=== PATIENT | female | born 1945 | race Caucasian/White ===

== ENCOUNTER 2024-05-18 11:14 | Observation (INO) ==
[2024-05-18 12:09] LABS: Appearance Urine Cloudy (Clear); Bacteria Urine Automated 1+ (None Seen); Bilirubin Urine Negative (Negative); Blood Urine Negative (Negative); Cast Urine Automated 0-2 /lpf (0-2); Color Urine Yellow; Glucose Urine UA Negative (Negative); Ketones Urine Trace (Negative); Leukocyte Esterase Urine 1+ (Negative); Nitrite Urine Negative (Negative); Protein Urine 1+ (Negative); Specific Gravity Urine 1.015 (1.000-1.030); Urobilinogen Urine Positive (Negative); pH Urine 8.5 (4.5-7.5)
[2024-05-18] MEDS: KETOROLAC TROMETHAMINE 15 MG/ML VIAL IV ONE (12:13)
[2024-05-18] MEDS: ONDANSETRON INJ 2 MG/ML 2 ML VIAL IV STA (12:13)
--- NOTE | 2024-05-18 12:15 | Emergency Department Note ---
Impression & Plan Renal infarct, Nausea ED Provider Note Provider: Jaren Parham MD DATE OF SERVICE: 05/18/2024 CHIEF COMPLAINT: Right flank pain, nausea and diarrhea HISTORY OF PRESENT ILLNESS: Patient is a 79-year-old female history of hypertension presenting here today reporting developing overnight pain in the right flank to right lower quadrant abdomen this morning. Reports nausea but no vomiting. Has had some diarrhea. Did take some Pepto this morning and had a little bit of darker stool. No fevers reported or chest pain or shortness of breath. Did not eat anything today as she was nauseous. No history of kidney stone. No trauma or falls. No pain in the leg. Maybe a little bit worse if she presses on her right flank but no abdominal pain. History of cholecystectomy in the past years ago. No sick contacts or recent travel. PAST MEDICAL HISTORY: As noted above MEDICATIONS: Reviewed home medications, uses 81 mg aspirin regularly SOCIAL HISTORY: Non-smoker PHYSICAL EXAM: GENERAL: alert and oriented in no acute distress on stretcher Head: normocephalic and atraumatic EYES: No injection, discharge or icterus. EOMI. NECK: Trachea midline. ENT: Mucous membranes pink and moist. LUNGS: Airway patent. No retractions. Breath sounds clear HEART: Regular rate and rhythm. No chest wall tenderness ABDOMEN: Soft and non-tender, without guarding or rebound. No appreciable masses or rash noted. SKIN: Acyanotic, warm, dry, without rashes EXTREMITIES: Without swelling, tenderness or deformity NEUROLOGICAL: No focal deficits. No aphasia. No facial droop or slurred speech. Ambulatory. EK bpm normal sinus rhythm. No PVC or PAC. Bit of baseline artifact but no acute ST segment elevation or depression with QTc of 443. CONTINUOUS CARDIAC MONITORING: was ordered and showed a heart rate of 60s to 70s bpm in normal sinus rhythm Patient's laboratory studies and imaging reviewed. Differential includes Renal colic, UTI, appendicitis, diverticulitis, mesenteric ischemia, aortic pathology, infections, inflammatory bowel disease, PUD, biliary pathology, as well as other pathologies. IMPRESSION/MEDICAL DECISION MAKING: Patient well-appearing in no distress. No fever or tachycardia. Patient pain in the right flank to right lower quadrant. Prior cholecystectomy. Not significantly tender in the abdomen. No pain in the leg or swelling. No trauma. No rash does not seem like zoster. Having some nausea as well as diarrhea. States diarrhea is little bit dark but no blood. Did take Pepto this morning. Doubt this is GI bleed. No sick contacts or suspect food intake reported. Blood work obtained. Sent for CT scan to exclude intra- abdominal/intestinal issue or kidney stone. Does not seem sciatic in nature. No swelling of the legs and I doubt fluid overload at this time or DVT. UA sent to exclude infection. EKG and troponin completed but lower suspicion this is cardiac in further discussion with the patient given the location of the pain in the right flank region. Doubt this represents PE or dissection. Not hypoxic or short of breath. Urinalysis here a few red blood cells, bacteria, and white blood cells notable. No significant acute renal dysfunction or evidence of hepatitis or pancreatitis of the redraw was needed for hemolyzed labs. Electrolytes reassuring. CBC clotted twice and had to be sent a third time. Third CBC did result with normal WBC/Hgb/hematocrit/platelet count. CT report of the abdomen pelvis per radiology state findings of mid to inferior right kidney suggestive of acute renal infarcts. Mother of a blood clot at age 36. Hypercoagulable workup ordered for further evaluation. Did reach out discussed with Dr. Kang of the anticoagulation clinic the case. She again agreed that this was a bit of an odd scenario. Given the patient's age with this odd finding although there is no history of A-fib further monitoring here with telemetry and starting of a heparin drip would likely be the best course of action. Discussed with the patient and she is agreeable to stay briefly. Did reach out discussed with the hospitalist team. Heparin drip ordered. DIAGNOSIS: Right renal infarcts, nausea DISPOSITION: Being evaluated by the hospitalist Patient was agreeable with this plan. 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 Family History (Updated 01/26/24 @ 09:53 by Mayuri Delgado) Denies family history of Ovarian cancer Prostate cancer Myocardial infarction Breast cancer Colorectal cancer Social History (Updated 01/26/24 @ 09:53 by Crystal D Danny) Smoking Status: Never smoker Do You Dip or Chew Tobacco: No; Hx Alcohol Use: No Hx Substance Use: No Preferred Language: Korean Current Living Situation: Family current occupational status: retired Feels Safe at Home: Yes Childhood Exposure to Second-Hand Smoke: No Dental Care, Regularly: No Physical Activity Frequency: 1-2 Times per Week Seatbelt Use: always Sunscreen Use: Yes Assistive Devices: Denture - Upper, Denture - Lower and Glasses Allergies Allergies Allergy/AdvReac Type Severity Reaction Status Date / Time No Known Allergies Allergy Verified 01/26/24 09:49 Home Meds Home Medications Medication Instructions Recorded Confirmed multivitamin (Daily Multi-Vitamin 1 tab PO DAILY 01/26/24 01/26/24 tablet) Previous Rx's Medication Instructions Recorded amlodipine 10 mg tablet 10 mg PO DAILY #90 tabs 01/26/24 carvedilol 6.25 mg tablet 6.25 mg PO BID 90 days #180 tabs 01/26/24 ipratropium bromide 21 mcg (0.03 2 spray intranasal TID #30 mL 01/26/24 %) nasal spray lisinopril 10 mg tablet 10 mg PO DAILY #90 tabs 01/26/24 loratadine 10 mg tablet (Claritin) 10 mg PO DAILY #90 tabs 01/26/24 Results & Data (ED) Vital Signs Vital Signs - 24 hr 05/18/24 11:21 05/18/24 11:54 05/18/24 12:43 Temperature 36.4 C L Temperature Source Oral Pulse Rate 100 H 66 Pulse Rate [Apical] 78 Respiratory Rate 18 12 Respiratory Effort / Characteristics Non-Labored Spontaneous Respiratory Depth Normal Respiratory Pattern Regular Blood Pressure 180/109 H Blood Pressure [Right Arm] 158/73 H Blood Pressure Mean 132 Blood Pressure Mean [Right Arm] 101 Pulse Oximetry 97 96 Oxygen Delivery Method Room Air Room Air Sepsis Recent Fever Within 48 Hours No Sepsis New/Unexplained Change in Mental Status No Sepsis Action Taken by Nursing No Action Required 05/18/24 14:00 Temperature Temperature Source Pulse Rate Pulse Rate [Apical] 63 Respiratory Rate 18 Respiratory Effort / Characteristics Non-Labored Spontaneous Respiratory Depth Normal Respiratory Pattern Regular Blood Pressure Blood Pressure [Right Arm] 129/77 Blood Pressure Mean Blood Pressure Mean [Right Arm] 94 Pulse Oximetry 97 Oxygen Delivery Method Room Air Sepsis Recent Fever Within 48 Hours Sepsis New/Unexplained Change in Mental Status Sepsis Action Taken by Nursing Laboratory Data 05/18/24 14:10 05/18/24 12:40 Lab Results 05/18/24 05/18/24 05/18/24 Range/Units 11:33 11:46 12:40 WBC Cancelled Cancelled RBC Cancelled Cancelled Hgb Cancelled Cancelled Hct Cancelled Cancelled MCV Cancelled Cancelled MCH Cancelled Cancelled MCHC Cancelled Cancelled RDW Std Deviation Cancelled Cancelled RDW Coeff of Kishore Cancelled Cancelled Plt Count Cancelled Cancelled MPV Cancelled Cancelled Immature Gran % (Auto) Cancelled Cancelled Neut % (Auto) Cancelled Cancelled Lymph % (Auto) Cancelled Cancelled [place] % (Auto) Cancelled Cancelled Eos % (Auto) Cancelled Cancelled Baso % (Auto) Cancelled Cancelled Neut # (Auto) Cancelled Cancelled Lymph # (Auto) Cancelled Cancelled [place] # (Auto) Cancelled Cancelled Eos # (Auto) Cancelled Cancelled Baso # (Auto) Cancelled Cancelled Immature Gran # (Auto) Cancelled Cancelled Absolute Nucleated RBC Cancelled Cancelled Nucleated RBC % (auto) Cancelled Cancelled Neutrophils % (Manual) Cancelled Cancelled Band Neutrophils % Cancelled Cancelled Lymphocytes % (Manual) Cancelled Cancelled Prolymphocyte % Cancelled Cancelled Reactive Lymphs % (Man) Cancelled Cancelled Monocytes % (Manual) Cancelled Cancelled Eosinophils % (Manual) Cancelled Cancelled Basophils % (Manual) Cancelled Cancelled Metamyelocytes % (Man) Cancelled Cancelled Myelocytes % (Man) Cancelled Cancelled Promyelocytes % (Man) Cancelled Cancelled Blast Cells % (Manual) Cancelled Cancelled Plasma Cell % (Manual) Cancelled Cancelled Other Cells % Cancelled Cancelled Nucleated RBC % Cancelled Cancelled Neutrophils # (Manual) Cancelled Cancelled Band Neutrophils # Cancelled Cancelled Total Absolute Neuts Cancelled Cancelled Lymphocytes # (Manual) Cancelled Cancelled Prolymphocyte # Cancelled Cancelled Reactive Lymphs # Cancelled Cancelled Total Abs Lymphocytes Cancelled Cancelled Monocytes # (Manual) Cancelled Cancelled Eosinophils # (Manual) Cancelled Cancelled Basophils # (Manual) Cancelled Cancelled Metamyelocytes # (Man) Cancelled Cancelled Myelocytes # (Manual) Cancelled Cancelled Promyelocytes # (Man) Cancelled Cancelled Blast Cells # (Man) Cancelled Cancelled Plasma Cell # (Manual) Cancelled Cancelled Other Cells # Cancelled Cancelled Nucleated RBCs # (Man) Cancelled Cancelled Hypersegmented Neuts Cancelled Cancelled Hyposegmented Neuts Cancelled Cancelled Hypogranular Neuts Cancelled Cancelled Large Granular Lymphs Cancelled Cancelled # Lrg Granular Lymphs Cancelled Cancelled Hairy Cells Cancelled Cancelled Smudge Cells Cancelled Cancelled Toxic Granulation Cancelled Cancelled Toxic Vacuolation Cancelled Cancelled Dohle Bodies Cancelled Cancelled Akash Rods Cancelled Cancelled Platelet Estimate Cancelled Cancelled Hypogranular Platelets Cancelled Cancelled Giant Platelets Cancelled Cancelled Platelet Satelliting Cancelled Cancelled RBC Morphology Cancelled Cancelled Polychromasia Cancelled Cancelled Hypochromasia Cancelled Cancelled Poikilocytosis Cancelled Cancelled Basophilic Stippling Cancelled Cancelled Anisocytosis Cancelled Cancelled Microcytosis Cancelled Cancelled Macrocytosis Cancelled Cancelled Spherocytes Cancelled Cancelled Pappenheimer Bodies Cancelled Cancelled Sickle Cells Cancelled Cancelled Target Cells Cancelled Cancelled Tear Drop Cells Cancelled Cancelled Ovalocytes Cancelled Cancelled Stomatocytes Cancelled Cancelled [place] Bodies Cancelled Cancelled Echinocytes Cancelled Cancelled Acanthocytes (Spur) Cancelled Cancelled Rouleaux Cancelled Cancelled RBC Agglutinates Cancelled Cancelled Schistocytes Cancelled Cancelled Sezary Cell Cancelled Cancelled Sodium 136 (136-145) mmol/L Potassium TNP 3.8 Chloride 101 (98-107) mmol/L Carbon Dioxide 25 (21-32) mmol/L Anion Gap 10 (3-11) BUN 17 (6-23) mg/dl Creatinine 0.78 (0.6-1.2) mg/dl Est Cr Clr Drug Dosing 68.7 ml/min eGFR 77.69 BUN/Creatinine Ratio 21.8 H (10-20) Glucose 144 H (70-99(Fasting)) mg/dl Calcium 10.5 H (8.6-10.3) mg/dl Total Bilirubin 0.5 (0.2-1.0) mg/dl AST TNP 24 ALT 18 (7-52) U/L Alkaline Phosphatase 80 (34-104) U/L Troponin I High Sens 9.6 (0-14) pg/ml Total Protein 9.0 H (6.0-8.3) gm/dl Albumin 4.9 (3.4-5.0) gm/dl Globulin 4.1 H (2.5-4.0) gm/dl Albumin/Globulin Ratio 1.2 (0.9-2) Lipase 13 (11-82) U/L Urine Color Yellow Urine Appearance Cloudy A (Clear) Urine pH 8.5 H (4.5-7.5) Ur Specific [place] 1.015 (1.000-1.030) Urine Protein 1+ H (Negative) Urine Glucose (UA) Negative (Negative) Urine Ketones Trace H (Negative) Urine Blood Negative (Negative) Urine Nitrite Negative (Negative) Urine Bilirubin Negative (Negative) Urine Urobilinogen Positive H (Negative) Ur Leukocyte Esterase 1+ H (Negative) Urine WBC (Auto) 6-10 H (0-5) /hpf Urine RBC (Auto) 3-5 H (0-2) /hpf U Hyaline Cast (Auto) 0-2 (0-2) /lpf U Epithel Cells (Auto) 3-5 H (0-2) /hpf Urine Bacteria (Auto) 1+ H (None Seen) Blood Parasites ID Cancelled Cancelled 05/18/24 Range/Units 14:10 WBC 9.82 RBC 4.58 Hgb 14.4 Hct 42.9 MCV 93.7 MCH 31.4 MCHC 33.6 RDW Std Deviation 42.4 RDW Coeff of Kishore 12.3 Plt Count 251 MPV 10.3 Immature Gran % (Auto) 0.3 Neut % (Auto) 78.1 Lymph % (Auto) 16.2 [place] % (Auto) 4.8 Eos % (Auto) 0.2 Baso % (Auto) 0.4 Neut # (Auto) 7.67 H Lymph # (Auto) 1.59 [place] # (Auto) 0.47 Eos # (Auto) 0.02 Baso # (Auto) 0.04 Immature Gran # (Auto) 0.03 Absolute Nucleated RBC Nucleated RBC % (auto) Neutrophils % (Manual) Band Neutrophils % Lymphocytes % (Manual) Prolymphocyte % Reactive Lymphs % (Man) Monocytes % (Manual) Eosinophils % (Manual) Basophils % (Manual) Metamyelocytes % (Man) Myelocytes % (Man) Promyelocytes % (Man) Blast Cells % (Manual) Plasma Cell % (Manual) Other Cells % Nucleated RBC % Neutrophils # (Manual) Band Neutrophils # Total Absolute Neuts Lymphocytes # (Manual) Prolymphocyte # Reactive Lymphs # Total Abs Lymphocytes Monocytes # (Manual) Eosinophils # (Manual) Basophils # (Manual) Metamyelocytes # (Man) Myelocytes # (Manual) Promyelocytes # (Man) Blast Cells # (Man) Plasma Cell # (Manual) Other Cells # Nucleated RBCs # (Man) Hypersegmented Neuts Hyposegmented Neuts Hypogranular Neuts Large Granular Lymphs # Lrg Granular Lymphs Hairy Cells Smudge Cells Toxic Granulation Toxic Vacuolation Dohle Bodies Akash Rods Platelet Estimate Hypogranular Platelets Giant Platelets Platelet Satelliting RBC Morphology Polychromasia Hypochromasia Poikilocytosis Basophilic Stippling Anisocytosis Microcytosis Macrocytosis Spherocytes Pappenheimer Bodies Sickle Cells Target Cells Tear Drop Cells Ovalocytes Stomatocytes [place] Bodies Echinocytes Acanthocytes (Spur) Rouleaux RBC Agglutinates Schistocytes Sezary Cell Sodium (136-145) mmol/L Potassium Chloride (98-107) mmol/L Carbon Dioxide (21-32) mmol/L Anion Gap (3-11) BUN (6-23) mg/dl Creatinine (0.6-1.2) mg/dl Est Cr Clr Drug Dosing ml/min eGFR BUN/Creatinine Ratio (10-20) Glucose (70-99(Fasting)) mg/dl Calcium (8.6-10.3) mg/dl Total Bilirubin (0.2-1.0) mg/dl AST ALT (7-52) U/L Alkaline Phosphatase (34-104) U/L Troponin I High Sens (0-14) pg/ml Total Protein (6.0-8.3) gm/dl Albumin (3.4-5.0) gm/dl Globulin (2.5-4.0) gm/dl Albumin/Globulin Ratio (0.9-2) Lipase (11-82) U/L Urine Color Urine Appearance (Clear) Urine pH (4.5-7.5) Ur Specific [place] (1.000-1.030) Urine Protein (Negative) Urine Glucose (UA) (Negative) Urine Ketones (Negative) Urine Blood (Negative) Urine Nitrite (Negative) Urine Bilirubin (Negative) Urine Urobilinogen (Negative) Ur Leukocyte Esterase (Negative) Urine WBC (Auto) (0-5) /hpf Urine RBC (Auto) (0-2) /hpf U Hyaline Cast (Auto) (0-2) /lpf U Epithel Cells (Auto) (0-2) /hpf Urine Bacteria (Auto) (None Seen) Blood Parasites ID Administered Medications Discontinued Medications Ioversol (Optiray 320 100ml) 94 ml IV ONCE ONE Stop: 05/18/24 13:03 Last Admin: 05/18/24 13:03 Dose: 94 ml Documented By: RAFIQF Ketorolac Tromethamine (Ketorolac Tromethamine 15 Mg/Ml Vial) 10 mg IV NOW ONE Stop: 05/18/24 12:10 Last Admin: 05/18/24 12:13 Dose: 10 mg Documented By: FARIDA Ondansetron HCl (Ondansetron Inj 2 Mg/Ml 2 Ml Vial) 4 mg IV NOW STA Stop: 05/18/24 12:09 Last Admin: 05/18/24 12:13 Dose: 4 mg Documented By: FARIDA Imaging Data Radiologist's Impression: Abdomen/Pelvis CT 05/18/24 12:[address] WITH IV CONTRAST CT DOSE: 1380.35 mGy.cm HISTORY: Acute right-sided flank pain with nausea, vomiting and diarrhea R flank abd pain, n/diarrhea TECHNIQUE: Multiaxial CT images of the abdomen and pelvis were performed following the IV administration of 94 cc of Optiray, A dose lowering technique was utilized adhering to the principles of ALARA. COMPARISON STUDY: None. FINDINGS: Cardiomegaly with mitral annular and coronary arterial calcifications. The imaged lung bases are generally clear. No free air. Unremarkable spleen and adrenal glands. Cholecystectomy with likely postsurgical biliary ductal dilation. 11 mm calcification involves the hepatic dome. No suspicious hepatic mass lesions. There is patency of the hepatic and portal veins. 7 mm hypodense focus of the pancreatic tail is nonspecific and may represent a sidebranch IPMN. Unremarkable left kidney. There is a wedge-shaped hypodense focus involving the posterior mid to inferior pole right kidney measuring up to 2.4 cm on image 117 series 3. There is moderate stenosis at the origin of the right renal artery secondary to calcified plaque. Additional ill-defined areas of decreased attenuation within the inferior pole right kidney on image 147 series 3. No large vessel occlusion identified. No hydronephrosis. Mild urinary bladder wall thickening with partial distention. No lymphadenopathy. Moderate sized hiatal hernia. No small bowel obstruction. Colonic diverticulosis. The appendix is not definitively seen. No secondary signs of acute appendicitis. Unremarkable soft tissues. No acute fracture. IMPRESSION: 1. Wedge-shaped hypodensities of the mid to inferior pole right kidney suggestive of acute renal infarcts. 2. No large vessel arterial occlusion identified. 3. No bowel obstruction or bowel wall thickening. 4. Colonic diverticulosis. 5. Moderate-sized hiatal hernia. ACT 112: Negative or not required by law. The above report was generated using voice recognition software. It may contain grammatical, syntax or spelling errors. Electronically signed by: Julio César Shannon M.D. 05/18/2024 1:36 PM Discharge Plan Visit Data Chief Complaint: Flank Pain Stated Complaint: PAIN IN R SIDE ED Provider: Jaren Parham Discharge Problem: Renal infarct, Nausea Patient Disposition: Being Evaluated by Hospitalist Forms Stand Alone Forms: [facility] Prescriptions Prescriptions: No Action multivitamin [Daily Multi-Vitamin] Tablet 1 tab PO DAILY ipratropium bromide 21 mcg (0.03 %) spray,non-aerosol 2 spray intranasal TID Qty: 30 3RF amlodipine 10 mg tablet 10 mg PO DAILY Qty: 90 3RF carvedilol 6.25 mg tablet 6.25 mg PO BID 90 Days Qty: 180 3RF lisinopril 10 mg tablet 10 mg PO DAILY Qty: 90 3RF loratadine [Claritin] 10 mg tablet 10 mg PO DAILY Qty: 90 3RF Referrals Referrals: Manuel Herzog DO [Primary Care Provider] -
[2024-05-18 12:29] LABS: Alanine Aminotransferase 18 U/L (7-52); Albumin Globulin Ratio 1.2 (0.9-2); Albumin Level 4.9 gm/dl (3.4-5.0); Alkaline Phosphatase 80 U/L (34-104); Anion Gap 10 (3-11); BUN Creatinine Ratio 21.8 (10-20); Bilirubin,Total 0.5 mg/dl (0.2-1.0); Blood Urea Nitrogen 17 mg/dl (6-23); Calcium 10.5 mg/dl (8.6-10.3); Carbon Dioxide 25 mmol/L (21-32); Chloride 101 mmol/L (98-107); Creatinine Clr Calc Pharmacy 68.7 ml/min; Globulin 4.1 gm/dl (2.5-4.0); Glucose 144 mg/dl (70-99(Fasting)); Lipase 13 U/L (11-82); Sodium 136 mmol/L (136-145)
[2024-05-18] MEDS: OPTIRAY 320 100ml IV ONE (13:03)
[2024-05-18 13:11] LABS: Potassium 3.8 mmol/L (3.5-5.1)
--- NOTE | 2024-05-18 13:38 | CT Scan Report ---
ABDOMEN AND PELVIS CT WITH IV CONTRAST CT DOSE: 1380.35 mGy.cm HISTORY: Acute right-sided flank pain with nausea, vomiting and diarrhea R flank abd pain, n/diarrhe a TECHNIQUE: Multiaxial CT images of the abdomen and pelvis were performed following the IV administrat ion of 94 cc of Optiray, A dose lowering technique was utilized adhering to the principles of ALARA. COMPARISON STUDY: None. FINDINGS: Cardiomegaly with mitral annular and coronary arterial calcifications. The imaged lung base s are generally clear. No free air. Unremarkable spleen and adrenal glands. Cholecystectomy with like ly postsurgical biliary ductal dilation. 11 mm calcification involves the hepatic dome. No suspicious hepatic mass lesions. There is patency of the hepatic and portal veins. 7 mm hypodense focus of the pancreatic tail is nonspecific and may represent a sidebranch IPMN. Unremarkable left kidney. There is a wedge-shaped hypodense focus involving the posterior mid to infe rior pole right kidney measuring up to 2.4 cm on image 117 series 3. There is moderate stenosis at th e origin of the right renal artery secondary to calcified plaque. Additional ill-defined areas of dec reased attenuation within the inferior pole right kidney on image 147 series 3. No large vessel occlu della identified. No hydronephrosis. Mild urinary bladder wall thickening with partial distention. No lymphadenopathy. Moderate sized hiatal hernia. No small bowel obstruction. Colonic diverticulosis. The appendix is not definitively seen. No secondary signs of acute appendicitis. Unremarkable soft tissues. No acute fra cture. IMPRESSION: 1. Wedge-shaped hypodensities of the mid to inferior pole right kidney suggestive of acute renal infa rcts. 2. No large vessel arterial occlusion identified. 3. No bowel obstruction or bowel wall thickening. 4. Colonic diverticulosis. 5. Moderate-sized hiatal hernia. ACT 112: Negative or not required by law. The above report was generated using voice recognition software. It may contain grammatical, syntax o r spelling errors. Electronically signed by: Julio César Shannon M.D. 05/18/2024 1:36 PM
[2024-05-18 14:39] LABS: Basophils # (auto) 0.04 K/uL (0.00-0.20); Basophils % (auto) 0.4 %; Eosinophils # (auto) 0.02 K/uL (0.00-0.50); Eosinophils % (auto) 0.2 %; Hematocrit (blood only) 42.9 % (37.0-47.0); Hemoglobin 14.4 g/dl (12.0-16.0); Immature Granulocytes # (auto) 0.03 K/uL (0.01-0.20); Immature Granulocytes % (auto) 0.3 %; Lymphocytes # (auto) 1.59 K/uL (1.20-3.40); Lymphocytes % (auto) 16.2 %; Mean Corpuscular Hemoglobin 31.4 pg (25.0-34.0); Mean Corpuscular Hgb Conc 33.6 g/dL (32.0-36.0); Mean Corpuscular Volume 93.7 fL (80.0-100.0); Mean Platelet Volume 10.3 fL (9.4-12.4); Monocytes # (auto) 0.47 K/uL (0.11-0.59); Monocytes % (auto) 4.8 %; Neutrophils # (auto) 7.67 K/uL (1.40-6.50); Neutrophils % (auto) 78.1 %; Platelet Count 251 K/uL (130-400); RDW Coefficient of Variation 12.3 % (11.5-14.5); RDW Standard Deviation 42.4 fL (36.4-46.3); Red Blood Count 4.58 M/uL (4.20-5.40); White Blood Count 9.82 K/ul (4.8-10.8)
[2024-05-18] MEDS: HEPARIN SODIUM/DEXTROSE 25,000 UNITS/500 ML BAG IV SCH (15:10)
[2024-05-18] MEDS: HEPARIN SOD (PORCINE) 1000 UNIT/ML IV ONE (15:10)
[2024-05-18] MEDS: Heparin IV Adult Wt-Based Standard w/ INITIAL Bolus Protocol IV STA (15:12)
[2024-05-18 15:18] LABS: Partial Thromboplastin Ratio 0.9; Partial Thromboplastin Time 23 Seconds (21-31); Prothrombin Time 10.9 Seconds (9.0-12.0)
--- NOTE | 2024-05-18 15:29 | Electrocardiogram Report ---
Test Reason : Blood Pressure : */* mmHG Vent. Rate : 67 BPM Atrial Rate : 67 BPM P-R Int : 152 ms QRS Dur : 74 ms QT Int : 420 ms P-R-T Axes : 64 63 38 degrees QTcB Int : 443 ms Normal sinus rhythm Normal ECG No previous ECGs available Confirmed by David Lang ([id number]) on 05/18/2024 3:28:50 PM Referred By: REFERRED SELF Confirmed By: David Lang
--- NOTE | 2024-05-18 15:36 | History & Physical Report ---
Date of Service May 18, 2024 Assessment & Plan (1) Renal infarct: Plan: IV heparin bolus and drip - likely can switch to PO anticoagulation tomorrow as long as she is stable over night TTE to assess for cardiac thrombus Monitor on telemetry for atrial fibrillation Monitor for worsening hypertension or nausea Follow up hypercoagulable workup Plan HTN - continue amlodipine, carvedilol and lisinopril VTE prophylaxis - IV heparin Diet - regular Disposition - admit to med/tele Admission and Anticipated Discharge Date Admission Date: May 18, 2024 History of Present Illness Chief Complaint: Right sided pain Primary Care Provider: Manuel Herzog DO Maria Isabel Buitrago is a 79 year old female who presents to the ER with right-sided flank pain radiating to the abdomen starting this morning around 7am. Current severity 0/10, 7/10 at worse, no radiation, dull aching pain, no exacerbation or alleviating factors, associated nausea but no vomiting. She has never had a similar pain previously. No urinary complaints. She was noted to have renal infarct with no large vessel occlusion on CT. She denies any history of blood clots. No history of atrial fibrillation, MT or stroke. She notes her mother of a clot to her brain aged 36 year old but unknown exact etiology of this. No other family history of clotting disorders. Allergies Allergy/AdvReac Type Severity Reaction Status Date / Time No Known Allergies Allergy Verified 01/26/24 09:49 Home Medications Medication Instructions Recorded Confirmed Type amlodipine 10 mg tablet 10 mg PO DAILY #90 tabs 01/26/24 05/18/24 Rx carvedilol 6.25 mg tablet 6.25 mg PO BID 90 days #180 tabs 01/26/24 05/18/24 Rx ipratropium bromide 21 mcg (0.03 2 spray intranasal TID #30 mL 01/26/24 05/18/24 Rx %) nasal spray lisinopril 10 mg tablet 10 mg PO DAILY #90 tabs 01/26/24 05/18/24 Rx loratadine 10 mg tablet (Claritin) 10 mg PO DAILY #90 tabs 01/26/24 05/18/24 Rx multivitamin (Daily Multi-Vitamin 1 tab PO DAILY 01/26/24 05/18/24 History tablet) Past Med/Surg History Problem List (Updated 05/18/24 @ 15:50 by Tyler Mathew MD) Nausea (Acute) Renal infarct (Acute) Hypercalcemia HTN (hypertension) Environmental allergies Surgical History (Updated 01/27/24 @ 08:58 by Manuel Herzog DO) History of cholecystectomy 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 Family History (Updated 01/26/24 @ 09:53 by Mayuri Delgado) Denies family history of Ovarian cancer Prostate cancer Myocardial infarction Breast cancer Colorectal cancer Social History (Updated 01/26/24 @ 09:53 by Mayuri Delgado) Smoking Status: Never smoker Do You Dip or Chew Tobacco: No; Hx Alcohol Use: No Hx Substance Use: No Preferred Language: Guinean Communication Ability: Effective Control 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 Required: No Beliefs That Will Affect Care: None Current Living Situation: Other Current Living Situation Comment: Friend current occupational status: retired Feels Safe at Home: Yes Safety Concerns: Feels Safe At This Time Childhood Exposure to Second-Hand Smoke: No Dental Care, Regularly: No Physical Activity Frequency: 1-2 Times per Week Seatbelt Use: always Sunscreen Use: Yes Assistive Devices: Denture - Upper, Denture - Lower and Glasses Review of Systems Review of Systems: All systems reviewed & are unremarkable except as noted in HPI & below Physical Exam Constitutional: WD/WN, vitals as above Eyes: PERRL, conjunctivae normal, anicteric sclerae ENMT: external ear and nose normal, oropharynx normal Respiratory: normal respiratory effort, lungs clear to auscultation Cardiovascular: RRR, no murmur, no edema Gastrointestinal (Abdomen): normal bowel sounds, soft, nontender, no hepatosplenomegaly Musculoskeletal: no cyanosis or clubbing, extremities motor strength 5/5 Skin: no rashes, warm and dry Neurologic: moves all extremities and awake; not confused Psychiatric: A+Ox3, euthymic affect Genitourinary: no CVA tenderness Results & Data Results & Data Vital Signs (Past 12 Hours) Vital Signs Temp Pulse Pulse Resp BP BP Pulse Ox 05/18/24 14:00 63 18 129/77 97 05/18/24 12:43 66 05/18/24 11:54 78 12 158/73 H 96 05/18/24 11:21 36.4 C L 100 H 18 180/109 H 97 O2 Del Method 05/18/24 14:00 Room Air 05/18/24 12:43 05/18/24 11:54 Room Air 05/18/24 11:21 Room Air Laboratory Results Abnormal lab results 05/18/24 05/18/24 05/18/24 Range/Units 11:33 11:46 14:10 Neut # (Auto) 7.67 H (1.40-6.50) K/uL BUN/Creatinine Ratio 21.8 H (10-20) Glucose 144 H (70-99(Fasting)) mg/dl Calcium 10.5 H (8.6-10.3) mg/dl Total Protein 9.0 H (6.0-8.3) gm/dl Globulin 4.1 H (2.5-4.0) gm/dl Urine Appearance Cloudy A (Clear) Urine pH 8.5 H (4.5-7.5) Urine Protein 1+ H (Negative) Urine Ketones Trace H (Negative) Urine Urobilinogen Positive H (Negative) Ur Leukocyte Esterase 1+ H (Negative) Urine WBC (Auto) 6-10 H (0-5) /hpf Urine RBC (Auto) 3-5 H (0-2) /hpf U Epithel Cells (Auto) 3-5 H (0-2) /hpf Urine Bacteria (Auto) 1+ H (None Seen) Diagnostic Findings ABDOMEN AND PELVIS CT WITH IV CONTRAST CT DOSE: 1380.35 mGy.cm HISTORY: Acute right-sided flank pain with nausea, vomiting and diarrhea R flank abd pain, n/diarrhea TECHNIQUE: Multiaxial CT images of the abdomen and pelvis were performed following the IV administration of 94 cc of Optiray, A dose lowering technique was utilized adhering to the principles of ALARA. COMPARISON STUDY: None. FINDINGS: Cardiomegaly with mitral annular and coronary arterial calcifications. The imaged lung bases are generally clear. No free air. Unremarkable spleen and adrenal glands. Cholecystectomy with likely postsurgical biliary ductal dilation. 11 mm calcification involves the hepatic dome. No suspicious hepatic mass lesions. There is patency of the hepatic and portal veins. 7 mm hypodense focus of the pancreatic tail is nonspecific and may represent a sidebranch IPMN. Unremarkable left kidney. There is a wedge-shaped hypodense focus involving the posterior mid to inferior pole right kidney measuring up to 2.4 cm on image 117 series 3. There is moderate stenosis at the origin of the right renal artery secondary to calcified plaque. Additional ill-defined areas of decreased attenuation within the inferior pole right kidney on image 147 series 3. No large vessel occlusion identified. No hydronephrosis. Mild urinary bladder wall thickening with partial distention. No lymphadenopathy. Moderate sized hiatal hernia. No small bowel obstruction. Colonic diverticulosis. The appendix is not definitively seen. No secondary signs of acute appendicitis. Unremarkable soft tissues. No acute fracture. IMPRESSION: 1. Wedge-shaped hypodensities of the mid to inferior pole right kidney suggestive of acute renal infarcts. 2. No large vessel arterial occlusion identified. 3. No bowel obstruction or bowel wall thickening. 4. Colonic diverticulosis. 5. Moderate-sized hiatal hernia. Medications Administered ER medications given: Ondansetron 4 mg IV Toradol 10 mg IV Heparin standard IV bolus and drip ECG Rate (beats per minute): 67 Rhythm: normal sinus Findings: no acute ischemic change Comparison ECG Date: no prior available Code Status & VTE Plan Code Status Full VTE Prophylaxis Plan VTE Prophylaxis will be ordered: Yes PG Care Time/CCT Total # of Minutes Spent Total Time Spent with Patient: Total time spent is greater than 50% in coordination of care (as documented) at patient's floor/unit and/or counseling patient: Coding Level of Care Code 33237 INT INP/OBS CARE 2/55MIN Diagnoses Renal infarct N28.0
[2024-05-18] MEDS: carvediloL 6.25 MG TAB PO STA (17:37)
[2024-05-18] MEDS: LORATADINE 10 MG TAB PO STA (17:37)
[2024-05-18] MEDS: amLODIPine BESYLATE 5 MG TAB PO STA (17:38)
[2024-05-18] MEDS: lisinopril 10 MG TAB PO STA (17:38)
[2024-05-18] MEDS ORDERED: ONDANSETRON INJ 2 MG/ML 2 ML VIAL IV PRN (20:51)
[2024-05-18] MEDS: IPRATROPIUM BROMIDE NASAL SPRAY 0.06% 15ML NAE SCH (22:04)
[2024-05-18] MEDS: ACETAMINOPHEN 325 MG TAB PO PRN (22:07)
[2024-05-18] MEDS ORDERED: hydrALAZINE HCL 20 MG/ML VIAL IV PRN (22:32)
[2024-05-19 04:53] LABS: Basophils # (auto) 0.04 K/uL (0.00-0.20); Basophils % (auto) 0.3 %; Eosinophils # (auto) 0.06 K/uL (0.00-0.50); Eosinophils % (auto) 0.5 %; Hematocrit (blood only) 34.7 % (37.0-47.0); Hemoglobin 11.9 g/dl (12.0-16.0); Immature Granulocytes # (auto) 0.04 K/uL (0.01-0.20); Immature Granulocytes % (auto) 0.3 %; Lymphocytes # (auto) 2.23 K/uL (1.20-3.40); Lymphocytes % (auto) 18.8 %; Mean Corpuscular Hemoglobin 31.6 pg (25.0-34.0); Mean Corpuscular Hgb Conc 34.3 g/dL (32.0-36.0); Mean Corpuscular Volume 92.3 fL (80.0-100.0); Monocytes # (auto) 1.15 K/uL (0.11-0.59); Monocytes % (auto) 9.7 %; Neutrophils # (auto) 8.37 K/uL (1.40-6.50); Neutrophils % (auto) 70.4 %; Platelet Count 207 K/uL (130-400); RDW Coefficient of Variation 12.5 % (11.5-14.5); RDW Standard Deviation 42.5 fL (36.4-46.3); Red Blood Count 3.76 M/uL (4.20-5.40); White Blood Count 11.89 K/ul (4.8-10.8)
[2024-05-19 05:21] LABS: Albumin Globulin Ratio 1.2 (0.9-2); Albumin Level 3.8 gm/dl (3.4-5.0); BUN Creatinine Ratio 23.8 (10-20); Bilirubin,Total 0.6 mg/dl (0.2-1.0); Calcium 9.3 mg/dl (8.6-10.3); Creatinine Clr Calc Pharmacy 66.8 ml/min; Globulin 3.1 gm/dl (2.5-4.0); Magnesium 1.9 mg/dl (1.7-2.4); Potassium 3.6 mmol/L (3.5-5.1); Total Protein 6.9 gm/dl (6.0-8.3)
[2024-05-19 05:35] LABS: ANTI-Xa, UFH(UnfractionatedHep 0.37 IU/ml (0.3-0.7)
[2024-05-19] MEDS: LORATADINE 10 MG TAB PO SCH (08:59)
[2024-05-19] MEDS: carvediloL 6.25 MG TAB PO SCH (08:59)
[2024-05-19] MEDS: lisinopril 10 MG TAB PO SCH (08:59)
[2024-05-19] MEDS: amLODIPine BESYLATE 5 MG TAB PO SCH (08:59)
--- NOTE | 2024-05-19 12:29 | Hospitalist Progress Note ---
Date of Service May 19, 2024 Assessment & Plan (1) Renal infarct: Plan: Multiple right renal infarcts noted on CT scan on admission. This is responsible for the right flank discomfort which has resolved. I suspect this was atherosclerotic embolic in nature. If cardiac echo was negative for mural thrombus, will discontinue heparin drip. No previous history of AR or atrial fibrillation. She denies palpitations. No indication for systemic anticoagulation at this point (2) HTN (hypertension): Plan: Stable. Continue current medical management Plan Hopeful discharge to home tomorrow, May 20 Admission and Anticipated Discharge Date Admission Date: May 18, 2024 Subjective Alert and oriented. Flank discomfort has resolved. Renal function remains normal. Multiple right renal infarcts noted. I suspect embolic atherosclerotic etiology from the right renal artery. There is no indication for the heparin drip if the cardiac echo is negative for mural thrombus. Will discontinue heparin drip if cardiac echo is unremarkable. Review of Systems 2 Review of Systems: Constitutionalno fever or chills ENTno blurred vision, no double vision, no epistaxis, no sore throat Respiratoryno cough, no wheezing, no shortness of breath Cardiacno palpitations, no chest pain, no syncope Vicente nausea, vomiting, diarrhea, melena, hematochezia GUno urinary retention, no urinary incontinence, no dysuria, no hematuria Musculoskeletalno joint pain, no muscle tenderness. Right flank discomfort has resolved Skinno bruising, no rashes, no pruritus Neurono isolated weakness, no paresthesia, no weakness Psychno depression, no anxiety Physical Exam 2 Physical Exam: General-alert and oriented x3, no fever, no chills HEENT-head atraumatic and normocephalic, pupils equal and reactive to light, extraocular muscles intact Neck-no lymphadenopathy or thyromegaly, trachea midline Chest-clear to auscultation. No rales, wheezing or rhonchi Cardiac-regular rate and rhythm, normal S1 and S2. Grade 2/6 systolic murmur noted Abdomen-normal bowel sounds, no hepatosplenomegaly Extremities-no cyanosis, clubbing, or edema Neuro-cranial nerves II through XII intact, motor and sensory function within normal limits, strength symmetrical, no focal deficits Psych-normal affect, normal mood Results & Data Results & Data Vital Signs (Past 12 Hours) Vital Signs Temp Pulse Pulse Resp BP BP Pulse Ox 05/19/24 08:12 135 H 05/19/24 07:46 36.9 C 65 17 152/74 H 95 05/19/24 05:53 62 05/19/24 04:12 36.9 C 81 16 151/71 H 96 O2 Del Method 05/19/24 08:12 05/19/24 07:46 Room Air 05/19/24 05:53 05/19/24 04:12 Room Air Laboratory Results 05/19/24 04:34 05/19/24 04:34 PG Care Time/CCT Total # of Minutes Spent Total Time Spent with Patient: Total time spent is greater than 50% in coordination of care (as documented) at patient's floor/unit and/or counseling patient: Coding Level of Care Code 62054 SUB INP/OBS CARE 3/50MIN Diagnoses Renal infarct N28.0 HTN (hypertension) I10
[2024-05-19 12:40] LABS: ANTI-Xa, LMWH(Low Molecular Wt 0.37 IU/ML (< 0.10)
--- NOTE | 2024-05-19 14:04 | XCELERA ---
[id number]
[2024-05-19 16:20] VITALS: RESP 18
[2024-05-20 06:40] LABS: Basophils # (auto) 0.03 K/uL (0.00-0.20); Basophils % (auto) 0.4 %; Eosinophils # (auto) 0.14 K/uL (0.00-0.50); Eosinophils % (auto) 1.8 %; Hematocrit (blood only) 34.8 % (37.0-47.0); Immature Granulocytes # (auto) 0.02 K/uL (0.01-0.20); Immature Granulocytes % (auto) 0.3 %; Lymphocytes # (auto) 2.52 K/uL (1.20-3.40); Lymphocytes % (auto) 32.7 %; Mean Corpuscular Hemoglobin 31.8 pg (25.0-34.0); Mean Corpuscular Hgb Conc 34.5 g/dL (32.0-36.0); Mean Corpuscular Volume 92.3 fL (80.0-100.0); Mean Platelet Volume 10.3 fL (9.4-12.4); Monocytes # (auto) 0.95 K/uL (0.11-0.59); Monocytes % (auto) 12.3 %; Neutrophils # (auto) 4.05 K/uL (1.40-6.50); Neutrophils % (auto) 52.5 %; Platelet Count 195 K/uL (130-400); RDW Coefficient of Variation 12.4 % (11.5-14.5); Red Blood Count 3.77 M/uL (4.20-5.40); White Blood Count 7.71 K/ul (4.8-10.8)
[2024-05-20 07:11] LABS: BUN Creatinine Ratio 17.1 (10-20); Calcium 9.5 mg/dl (8.6-10.3); Creatinine Clr Calc Pharmacy 65.5 ml/min; Potassium 4.4 mmol/L (3.5-5.1)
--- NOTE | 2024-05-20 11:01 | Discharge Summary ---
Discharge Summary Date of Service May 20, 2024 Principal Dx & Hospital Course #1 = Principal Diagnosis (1) Renal infarct: Multiple right renal infarcts noted on CT scan on admission. This is responsible for the right flank discomfort which has resolved. I suspect this was atherosclerotic embolic in nature. Cardiac echo was negative for mural thrombus. There is no atrial fibrillation. Heparin drip has been discontinued. In my opinion, there is no indication for systemic anticoagulation at this time. (2) HTN (hypertension): Stable. Continue current medical management Plan Home today, May 20 Admission HPI Per Admitting Provider Maria Isabel Buitrago is a 79 year old female who presents to the ER with right-sided flank pain radiating to the abdomen starting this morning around 7am. Current severity 0/10, 7/10 at worse, no radiation, dull aching pain, no exacerbation or alleviating factors, associated nausea but no vomiting. She has never had a similar pain previously. No urinary complaints. She was noted to have renal infarct with no large vessel occlusion on CT. She denies any history of blood clots. No history of atrial fibrillation, [place] or stroke. She notes her mother of a clot to her brain aged 36 year old but unknown exact etiology of this. No other family history of clotting disorders. Discharge Exam General-alert and oriented x3, no fever, no chills HEENT-head atraumatic and normocephalic, pupils equal and reactive to light, extraocular muscles intact Neck-no lymphadenopathy or thyromegaly, trachea midline Chest-clear to auscultation. No rales, wheezing or rhonchi Cardiac-regular rate and rhythm, normal S1 and S2. Grade 2/6 systolic murmur noted Abdomen-normal bowel sounds, no hepatosplenomegaly Extremities-no cyanosis, clubbing, or edema Neuro-cranial nerves II through XII intact, motor and sensory function within normal limits, strength symmetrical, no focal deficits Psych-normal affect, normal mood Discharge Plan Discharge Items Patient Disposition: Home - Self-Care Reason For Visit: RENAL INFARCTION Discharge Diagnosis: Multiple right renal infarctions, right flank pain Activity: Resume your previous activity Non-emergency contact: Primary Care Provider Call non-emergency contact if: your symptoms worsen Follow-up/Referrals: Manuel Herzog, [Primary Care Provider] - Diet: Regular and Heart Healthy Addtl Attending Provider Instructions: All medications remain the same. No indication for blood thinners for this particular problem Pending Studies at Discharge: Yes Studies:: Hypercoagulability lab tests results Stand-Alone Forms: My [facility] Who Can Fix My Car, Smoking Cessation Medications and DC Order Prescriptions: Continued multivitamin [Daily Multi-Vitamin] Tablet 1 tab PO DAILY ipratropium bromide 21 mcg (0.03 %) spray,non-aerosol 2 spray intranasal TID Qty: 30 3RF amlodipine 10 mg tablet 10 mg PO DAILY Qty: 90 3RF carvedilol 6.25 mg tablet 6.25 mg PO BID 90 Days Qty: 180 3RF lisinopril 10 mg tablet 10 mg PO DAILY Qty: 90 3RF loratadine [Claritin] 10 mg tablet 10 mg PO DAILY Qty: 90 3RF Discharge Orders: Discharge Order (Routine); Ordered 05/20/24 Ordered By: Cristo Carty Admission Data Admit Date/Time: 05/18/24 15:33 Attending Provider: Cristo Carty Admit Provider: Tyler Mathew Primary Care Provider: Manuel Herzog Other Providers: Tyler Mathew Hospital Stay Data Consultations 05/18/24 14:21 ED Decision to Admit Stat Diagnostic Imagining Performed 05/18/24 12:10 CT abd pelvis IV con only Stat Pending Results Patient Have Any Pending Studies at Discharge: Yes Discharge Instructions Given to Patient (Per Discharging Provider) All medications remain the same. No indication for blood thinners for this particular problem Total Time Total Time Spent Total Time Spent (In Minutes): 45 minutes Coding Level of Care Code 64966 INP/OBS DISCH >30 MIN Diagnoses Renal infarct N28.0 HTN (hypertension) I10
[2024-05-20 11:30] VITALS: TEMP 98.4; O2SAT 95
[2024-05-20 11:32] VITALS: BP 152/74; PULSE 97
== END 2024-05-20 11:30 | disposition home or self-care (01) | DRG 700 ==
LOC: ED 11:14 → 3N 15:33 → SUATTDRO 15:33 → INTOOBSV 15:33 → 3N 16:27 → 2W 22:13

== ENCOUNTER 2024-12-16 12:40 | Observation (INO) ==
[2024-12-16] MEDS: OPTIRAY 320 125ml IV ONE (12:52)
--- NOTE | 2024-12-16 12:54 | Emergency Department Note ---
Impression & Plan Acute CVA (cerebrovascular accident), Facial droop, Slurred speech ED Provider Note NAME: TIESHA QUINTANA AGE: 79 SEX: F : 1945 ARRIVES VIA: Ambulance INFORMANT: Patient ED PROVIDER(S): Emanuel Ortega DO CHIEF COMPLAINT: Slurred speech and facial droop HPI: Patient is a 79-year-old female with a past medical history of renal artery stenosis who presents to the ER for facial droop and slurred speech. Symptoms started around 12:00 today. They affected the left side. She denies any weakness or numbness in the arms or legs. No headache or change in vision. No chest pain or shortness of breath. No dysuria, urgency or frequency. No other exacerbating or remitting factors. ADDITIONAL HISTORY OBTAINED: Per HPI Chronic Medical/Social Conditions Affecting Care: Per HPI PAST MEDICAL HISTORY:See Below PAST SURGICAL HISTORY:See Below FAMILY HISTORY:See Below SOCIAL HISTORY:See Below HOME MEDICATIONS:See Below ALLERGIES:See Below VITALS:See Below PHYSICAL EXAMINATION: GENERAL: Sitting up in bed, alert, well appearing, well nourished, no distress, non-toxic EYE EXAM: normal conjunctiva. PERRL and EOM's grossly intact. OROPHARYNX: no exudate, no erythema, lips, buccal mucosa, and tongue normal and mucous membranes are moist NECK: supple, no nuchal rigidity, no adenopathy, non-tender LUNGS: Clear to auscultation. Normal chest wall mechanics HEART: no murmurs, S1 normal and S2 normal ABDOMEN: abdomen soft, non-tender, normo-active bowel sounds, no masses, no rebound or guarding. BACK: Back is symmetrical on inspection and there is no deformity, no midline tenderness, no CVA tenderness. SKIN: no rashes and no bruising UPPER EXTREMITIES: upper extremities are grossly normal. LOWER EXTREMITIES: No pitting edema. NEURO EXAM: Normal sensorium, cranial nerves II-XII intact with the exception of a slight left-sided facial droop, normal speech, no weakness of arms, no weakness of legs. No drift. Finger to nose intact. Gross sensation intact. MEDICAL DECISION MAKING: Patient is a 79-year-old female who presents ER for the above-stated complaint. I received medical command call and stroke alert was initiated as symptoms started around 12:00 today with a left-sided facial droop and slurred speech. Upon arrival patient was seen and evaluated in the CT suite. CTs were obtained. Discussed with Tatiana esparza. Labs show no significant leukocytosis or anemia. INR unremarkable. BMP with mild hypokalemia at 134. LFTs and bilirubin were unremarkable. Troponin was negative. Patient was seen and evaluated by Tatiana esparza. They recommended admission, Plavix, aspirin and a complete workup. Discussed case with the hospitalist for further evaluation management and treatment. Symptoms were nearly completely resolved upon presentation with an NIH of 1. Consults/Care Managements Discussions: Per [facility] Triage Nursing notes reviewed. Limited review of prior medical records performed Vital Signs: reviewed and remarkable for no significant abnormalities Differential diagnosis: Differential Diagnosis includes but is not limited to ischemic Stroke, hemorrhagic stroke, bells palsy, mass, neoplasm, migraine headache, seizure, subarachnoid hemorrhage, TIA, and transient global amnesia. ER treatment provided: See below Diagnostics interpreted by me include EKG and cardiac monitoring as listed below: -Cardiac Monitoring: An order was placed for continuous cardiac monitoring. The monitor shows a rate of 70 with sinus rhythm. -ECG: Sinus rhythm rate of 77 Normal axis No PVCs QTc 454 -Laboratory studies:Interpreted by me as stated above in MDM and shown below. Imaging studies: Xrays: As interpreted by me:none CTs show: CT of the head and neck shows no acute stroke or LVO Procedures:none Past Med/Surg History Problem List (Updated 12/16/24 @ 18:17 by Emanuel Ortega DO) Slurred speech (Acute) Facial droop (Acute) Acute CVA (cerebrovascular accident) (Acute) TIA (transient ischemic attack) Class 1 obesity due to excess calories with serious comorbidity and body mass index (BMI) of 33.0 to 33.9 in adult Right sciatic nerve pain Vitamin B12 deficiency Impaired fasting blood sugar Elevated homocysteine Right renal artery stenosis Medical History Aortic stenosis, mild HLD (hyperlipidemia) Renal artery arteriosclerosis Renal infarct HTN (hypertension) Hiatal hernia moderate, CT 2023 Nausea Environmental allergies Surgical History History of cholecystectomy Hx of total knee arthroplasty Family History Denies family history of Ovarian cancer Prostate cancer Myocardial infarction Breast cancer Colorectal cancer Social History Smoking Status: Never smoker Do You Dip or Chew Tobacco: No; Hx Alcohol Use: No Hx Substance Use: No Preferred Language: Korean Communication Ability: Effective Special Effects Designer Required: No Beliefs That Will Affect Care: None Current Living Situation: Other Current Living Situation Comment: Friend current occupational status: retired Feels Safe at Home: Yes Childhood Exposure to Second-Hand Smoke: No Diet: regular caffeine: Yes Dental Care, Regularly: No Physical Activity Frequency: 1-2 Times per Week Seatbelt Use: always Sunscreen Use: Yes Gender Identity: Female Assistive Devices: Denture - Upper, Denture - Lower and Glasses Allergies Allergies Allergy/AdvReac Type Severity Reaction Status Date / Time latex Allergy Severe Painful Unverified 12/16/24 14:29 blisters Home Meds Home Medications Medication Instructions Recorded Confirmed multivitamin (Daily Multi-Vitamin 1 tab PO DAILY 01/26/24 12/16/24 tablet) aspirin 81 mg tablet,delayed 81 mg PO DAILY 07/28/24 12/16/24 release acetaminophen 500 mg tablet 500 mg PO Q6H PRN Pain 12/16/24 12/16/24 omega 2-zar-dth-fish oil 900 1 cap PO DAILY 12/16/24 12/16/24 mg-1,400 mg capsule,delayed release Previous Rx's Medication Instructions Recorded amlodipine 10 mg tablet 10 mg PO DAILY #90 tabs 01/26/24 carvedilol 6.25 mg tablet 6.25 mg PO BID 90 days #180 tabs 01/26/24 lisinopril 10 mg tablet 10 mg PO DAILY #90 tabs 01/26/24 rosuvastatin 20 mg tablet 20 mg PO DAILY #90 tabs 07/28/24 ipratropium bromide 21 mcg (0.03 2 spray intranasal TID #30 mL 10/04/24 %) nasal spray Results & Data (ED) Vital Signs Vital Signs - 24 hr 12/16/24 12:40 12/16/24 12:40 12/16/24 13:01 Temperature 36.6 C Temperature Source Temporal Artery Scan Pulse Rate 76 Pulse Rate [Apical] 78 Pulse Rate from SpO2 Sensor Respiratory Rate 20 18 Respiratory Effort / Characteristics Non-Labored Non-Labored Respiratory Depth Normal Normal Blood Pressure 174/91 H Blood Pressure [Right Arm] 180/88 H Blood Pressure Mean 118 Blood Pressure Mean [Right Arm] 118 Pulse Oximetry 92 93 93 Oxygen Delivery Method Room Air Room Air Room Air Sepsis Recent Fever Within 48 Hours No Sepsis New/Unexplained Change in Mental Status Yes Sepsis Action Taken by Nursing No Action Required 12/16/24 13:04 12/16/24 13:09 12/16/24 13:10 Temperature Temperature Source Pulse Rate 77 76 Pulse Rate [Apical] 76 Pulse Rate from SpO2 Sensor 77 Respiratory Rate 18 19 Respiratory Effort / Characteristics Non-Labored Respiratory Depth Normal Blood Pressure 184/89 H Blood Pressure [Right Arm] 184/89 H Blood Pressure Mean 120 Blood Pressure Mean [Right Arm] 120 Pulse Oximetry 90 93 Oxygen Delivery Method Room Air Sepsis Recent Fever Within 48 Hours Sepsis New/Unexplained Change in Mental Status Sepsis Action Taken by Nursing 12/16/24 13:26 12/16/24 13:27 12/16/24 13:51 Temperature Temperature Source Pulse Rate 82 68 Pulse Rate [Apical] 80 Pulse Rate from SpO2 Sensor 76 Respiratory Rate 21 18 18 Respiratory Effort / Characteristics Non-Labored Respiratory Depth Normal Blood Pressure 184/84 H 156/79 H Blood Pressure [Right Arm] 184/84 H Blood Pressure Mean 117 104 Blood Pressure Mean [Right Arm] 117 Pulse Oximetry 95 Oxygen Delivery Method Room Air Sepsis Recent Fever Within 48 Hours Sepsis New/Unexplained Change in Mental Status Sepsis Action Taken by Nursing 12/16/24 13:52 Temperature Temperature Source Pulse Rate Pulse Rate [Apical] 74 Pulse Rate from SpO2 Sensor Respiratory Rate 20 Respiratory Effort / Characteristics Non-Labored Respiratory Depth Normal Blood Pressure Blood Pressure [Right Arm] 156/79 H Blood Pressure Mean Blood Pressure Mean [Right Arm] 104 Pulse Oximetry 92 Oxygen Delivery Method Room Air Sepsis Recent Fever Within 48 Hours Sepsis New/Unexplained Change in Mental Status Sepsis Action Taken by Nursing Laboratory Data 12/16/24 12:58 12/16/24 12:58 Lab Results 12/16/24 Range/Units 12:58 WBC 8.87 (4.8-10.8) K/ul RBC 3.90 L (4.20-5.40) M/uL Hgb 12.6 (12.0-16.0) g/dl Hct 36.5 L (37.0-47.0) % MCV 93.6 (80.0-100.0) fL MCH 32.3 (25.0-34.0) pg MCHC 34.5 (32.0-36.0) g/dL RDW Std Deviation 43.3 (36.4-46.3) fL RDW Coeff of Kishroe 12.5 (11.5-14.5) % Plt Count 193 (130-400) K/uL MPV 10.7 (9.4-12.4) fL Immature Gran % (Auto) 0.2 % Neut % (Auto) 58.2 % Lymph % (Auto) 27.3 % Cole % (Auto) 11.7 % Eos % (Auto) 2.3 % Baso % (Auto) 0.3 % Neut # (Auto) 5.16 (1.40-6.50) K/uL Lymph # (Auto) 2.42 (1.20-3.40) K/uL Cole # (Auto) 1.04 H (0.11-0.59) K/uL Eos # (Auto) 0.20 (0.00-0.50) K/uL Baso # (Auto) 0.03 (0.00-0.20) K/uL Immature Gran # (Auto) 0.02 (0.01-0.20) K/uL PT 11.2 (9.0-12.0) Seconds INR 1.0 (0.9-1.1) APTT 23 (21-31) Seconds PTT Ratio 0.9 Sodium 134 L (136-145) mmol/L Potassium 3.9 (3.5-5.1) mmol/L Chloride 103 (98-107) mmol/L Carbon Dioxide 24 (21-32) mmol/L Anion Gap 7 (3-11) BUN 16 (6-23) mg/dl Creatinine 0.86 (0.6-1.2) mg/dl Est Cr Clr Drug Dosing 63.9 ml/min eGFR 69.10 BUN/Creatinine Ratio 18.6 (10-20) Glucose 91 (70-99(Fasting)) mg/dl Calcium 9.3 (8.6-10.3) mg/dl Magnesium 2.0 (1.7-2.4) mg/dl Total Bilirubin 0.4 (0.2-1.0) mg/dl AST 20 (13-39) U/L ALT 10 (7-52) U/L Alkaline Phosphatase 55 (34-104) U/L Troponin I High Sens 7.4 (0-14) pg/ml Total Protein 7.3 (6.0-8.3) gm/dl Albumin 4.1 (3.4-5.0) gm/dl Globulin 3.2 (2.5-4.0) gm/dl Albumin/Globulin Ratio 1.3 (0.9-2) Administered Medications Carvedilol (Carvedilol 6.25 Mg Tab) 6.25 mg PO BIDM WOJCIECH Stop: 01/15/25 17:14 Last Admin: 12/16/24 17:32 Dose: 6.25 mg Documented By: DILSHAD Discontinued Medications Aspirin (Aspirin Chew 324 Mg) 324 mg PO NOW STA Stop: 12/16/24 13:35 Last Admin: 12/16/24 13:55 Dose: 324 mg Documented By: ES Clopidogrel Bisulfate (Clopidogrel Bisulfate 300 Mg Tab) 300 mg PO NOW STA Stop: 12/16/24 13:35 Last Admin: 12/16/24 13:55 Dose: 300 mg Documented By: ES Ioversol (Optiray 320 125ml) 119 ml IV ONCE ONE Stop: 12/16/24 12:53 Last Admin: 12/16/24 12:52 Dose: 119 ml Documented By: EAB Imaging Data Radiologist's Impression: Head CT 12/16/24 12:39 CT SCAN OF THE BRAIN WITHOUT IV CONTRAST CLINICAL HISTORY: Slurred speech. Suspected acute stroke. COMPARISON STUDY: None. TECHNIQUE: Unenhanced axial CT scan of the brain was performed from the vertex to the skull base. A dose lowering technique was utilized adhering to the principles of ALARA. FINDINGS: Brain parenchyma: No acute intracranial hemorrhage, midline shift or mass effect is present. Burrell-white matter differentiation is preserved. There are no extra- axial fluid collections. There are no findings to suggest acute dural sinus thrombosis or acute territorial infarct. White matter hypodensities are suggestive of small vessel disease. Ventricles, sulci, cisterns: There is no hydrocephalus. The basal cisterns are patent. Calvarium: Unremarkable. Sinuses and mastoids: The right maxillary sinus is largely opacified. The mastoid air cells are well pneumatized. Orbits: The bony orbits are grossly intact. IMPRESSION: No acute intracranial findings. ACT 112: Negative or not required by law. Electronically signed by: Robert Barros M.D. 12/16/2024 12:56 PM Head CTA 12/16/24 12:39 CTA ANGIOGRAPHY OF THE HEAD CLINICAL HISTORY: neuro deficit, acute stroke suspected. Slurred speech. COMPARISON STUDY: No previous studies for comparison. TECHNIQUE: Helical axial images of the head were obtained following uneventful intravenous administration of 119 cc of Optiray. Sagittal and coronal reconstructions were viewed as well as maximal intensity projections on an independent 3-D workstation. Automated exposure control was utilized for the study. A dose lowering technique was utilized adhering to the principles of ALARA. FINDINGS: No acute intracranial hemorrhage, midline shift or mass effect is present. Ventricular system is unremarkable. Basal cisterns are patent. There are no extra-axial collections. There is extensive calcified atherosclerotic plaque within the bilateral cavernous carotids which results in mild narrowing. No severe stenosis is present. The bilateral M1, M2, A1 and A2 segments are patent. There is no intracranial aneurysm. There is mild stenosis of the intracranial portion of the left vertebral artery. Basilar artery is patent. There is persistence of the right posterior cerebral artery. The posterior cerebral arteries are patent. The maxillary sinus is opacified. IMPRESSION: No intracranial vessel occlusion identified. No intracranial aneurysm. ACT 112: Negative or not required by law. Electronically signed by: Robert Barros M.D. 12/16/2024 1:08 PM Neck CTA 12/16/24 12:39 CT angio neck with con CLINICAL HISTORY: 79 years-old Female with neuro deficit, acute stroke suspected. Acute stroke like symptoms with slurred speech COMPARISON STUDY: Head CT of same day TECHNIQUE: Following the IV administration of 119 ml of Optiray, CT angiogram of the neck was performed from the aortic arch to the skull base. Images are reviewed in the axial, sagittal, and coronal planes. 3-D MIPS images are created and assessed. IV contrast was administered without complication. All measurements were calculated based on NASCET criteria. A dose lowering technique was utilized adhering to the principles of ALARA. CT DOSE: 1149.73 mGy.cm FINDINGS: Three-vessel morphology of the thoracic aortic arch. There is patency of the innominate and images including arteries. Moderate atherosclerotic plaque of the carotid bulbs. There is approximately 60% stenosis at the origin of the right ICA. There is high-grade stenosis of approximately 80% at the origin of the left ICA. Calcified plaque of the cavernous, clinoid and supraclinoid segments without high-grade stenosis. The vertebral arteries are codominant and widely patent. No aneurysm, dissection and/or arterial occlusion identified. Lung apices are clear without pneumothorax. Unremarkable soft tissues. There complete opacification of the right maxillary sinus. Multilevel degenerative changes of the cervical spine. IMPRESSION: 1. 80% stenosis at the origin of the left ICA with 60% stenosis at the origin of the right ICA secondary to moderate atherosclerosis. 2. Patent vertebral arteries. ACT 112: Negative or not required by law. The above report was generated using voice recognition software. It may contain grammatical, syntax or spelling errors. Electronically signed by: Julio César Shannon M.D. 12/16/2024 1:23 PM Brain MRI 12/16/24 14:30 Clinical History: Slurred speech. Possible stroke Technique: Multiple T1 and T2-weighted magnetic resonance images were obtained of the brain without gadolinium contrast Findings: There are multiple small foci of restricted diffusion involving the cortex of the right frontal and right parietal lobes, measuring up to 5 mm in size. These are concerning for small acute infarcts. There is cerebral atrophy, within expected limits for the patient's age. There are focal and confluent areas of increased T2 signal intensity within the periventricular white matter of the cerebral hemispheres bilaterally. This is most likely due to chronic small vessel ischemic disease. No definite mass lesion is seen on this noncontrast study. There is no intracranial hemorrhage or other fluid collection. No midline shift or other form of herniation is seen. There is no hydrocephalus. Normal flow-voids are seen within the arteries of the [id number]. The orbits appear unremarkable. There is near compete opacification of the right maxillary sinus due to fluid. The mastoid air cells appear clear. Impression: 1. Multiple small acute infarcts involving the cortex of the right frontal and right parietal lobes. This could be due to embolic disease. No large infarct is seen 2. Cerebral atrophy and chronic small vessel ischemic disease 3. Right maxillary sinusitis ACT 112: Positive. There are findings on this exam that require communication between the performing entity and the patient following Patient Test Result Information Act ([place] ACT 112) guidelines. Electronically signed by Raheem Lobo 12-16-2024 5:34 PM Discharge Plan Visit Data Chief Complaint: Stroke Alert Stated Complaint: STROKE ALERT ED Provider: Emanuel Ortega Discharge Problem: Acute CVA (cerebrovascular accident), Facial droop, Slurred speech Patient Disposition: Admitted As Inpatient Condition: Fair Discharge Instructions Interventions: ED Discharge Assessment Last Done: 12/16/24 17:01
--- NOTE | 2024-12-16 12:59 | CT Scan Report ---
CT SCAN OF THE BRAIN WITHOUT IV CONTRAST CLINICAL HISTORY: Slurred speech. Suspected acute stroke. COMPARISON STUDY: None. TECHNIQUE: Unenhanced axial CT scan of the brain was performed from the vertex to the skull base. A dose lowering technique was utilized adhering to the principles of ALARA. FINDINGS: Brain parenchyma: No acute intracranial hemorrhage, midline shift or mass effect is present. Burrell-whi te matter differentiation is preserved. There are no extra-axial fluid collections. There are no find ings to suggest acute dural sinus thrombosis or acute territorial infarct. White matter hypodensities are suggestive of small vessel disease. Ventricles, sulci, cisterns: There is no hydrocephalus. The basal cisterns are patent. Calvarium: Unremarkable. Sinuses and mastoids: The right maxillary sinus is largely opacified. The mastoid air cells are well pneumatized. Orbits: The bony orbits are grossly intact. IMPRESSION: No acute intracranial findings. ACT 112: Negative or not required by law. Electronically signed by: Robert Barros M.D. 12/16/2024 12:56 PM
--- NOTE | 2024-12-16 13:10 | CT Scan Report ---
CTA ANGIOGRAPHY OF THE HEAD CLINICAL HISTORY: neuro deficit, acute stroke suspected. Slurred speech. COMPARISON STUDY: No previous studies for comparison. TECHNIQUE: Helical axial images of the head were obtained following uneventful intravenous administr ation of 119 cc of Optiray. Sagittal and coronal reconstructions were viewed as well as maximal inten sity projections on an independent 3-D workstation. Automated exposure control was utilized for the study. A dose lowering technique was utilized adhering to the principles of ALARA. FINDINGS: No acute intracranial hemorrhage, midline shift or mass effect is present. Ventricular syst em is unremarkable. Basal cisterns are patent. There are no extra-axial collections. There is extensi ve calcified atherosclerotic plaque within the bilateral cavernous carotids which results in mild rodney rowing. No severe stenosis is present. The bilateral M1, M2, A1 and A2 segments are patent. There is no intracranial aneurysm. There is mild stenosis of the intracranial portion of the left vertebral ar sam. Basilar artery is patent. There is persistence of the right posterior cerebral artery. Th e posterior cerebral arteries are patent. The maxillary sinus is opacified. IMPRESSION: No intracranial vessel occlusion identified. No intracranial aneurysm. ACT 112: Negative or not required by law. Electronically signed by: Robert Barros M.D. 12/16/2024 1:08 PM
--- NOTE | 2024-12-16 13:24 | CT Scan Report ---
CT angio neck with con CLINICAL HISTORY: 79 years-old Female with neuro deficit, acute stroke suspected. Acute stroke lik e symptoms with slurred speech COMPARISON STUDY: Head CT of same day TECHNIQUE: Following the IV administration of 119 ml of Optiray, CT angiogram of the neck was perform ed from the aortic arch to the skull base. Images are reviewed in the axial, sagittal, and coronal pl anes. 3-D MIPS images are created and assessed. IV contrast was administered without complication. Al l measurements were calculated based on NASCET criteria. A dose lowering technique was utilized adhe ring to the principles of ALARA. CT DOSE: 1149.73 mGy.cm FINDINGS: Three-vessel morphology of the thoracic aortic arch. There is patency of the innominate and images including arteries. Moderate atherosclerotic plaque of the carotid bulbs. There is approximat vitaly 60% stenosis at the origin of the right ICA. There is high-grade stenosis of approximately 80% at the origin of the left ICA. Calcified plaque of the cavernous, clinoid and supraclinoid segments wit hout high-grade stenosis. The vertebral arteries are codominant and widely patent. No aneurysm, disse ction and/or arterial occlusion identified. Lung apices are clear without pneumothorax. Unremarkable soft tissues. There complete opacification o f the right maxillary sinus. Multilevel degenerative changes of the cervical spine. IMPRESSION: 1. 80% stenosis at the origin of the left ICA with 60% stenosis at the origin of the right ICA second sera to moderate atherosclerosis. 2. Patent vertebral arteries. ACT 112: Negative or not required by law. The above report was generated using voice recognition software. It may contain grammatical, syntax o r spelling errors. Electronically signed by: Julio César Shannon M.D. 12/16/2024 1:23 PM
[2024-12-16 13:30] LABS: Basophils # (auto) 0.03 K/uL (0.00-0.20); Basophils % (auto) 0.3 %; Eosinophils % (auto) 2.3 %; Hematocrit (blood only) 36.5 % (37.0-47.0); Hemoglobin 12.6 g/dl (12.0-16.0); Immature Granulocytes # (auto) 0.02 K/uL (0.01-0.20); Immature Granulocytes % (auto) 0.2 %; Lymphocytes # (auto) 2.42 K/uL (1.20-3.40); Lymphocytes % (auto) 27.3 %; Mean Corpuscular Hemoglobin 32.3 pg (25.0-34.0); Mean Corpuscular Hgb Conc 34.5 g/dL (32.0-36.0); Mean Corpuscular Volume 93.6 fL (80.0-100.0); Mean Platelet Volume 10.7 fL (9.4-12.4); Monocytes # (auto) 1.04 K/uL (0.11-0.59); Monocytes % (auto) 11.7 %; Neutrophils # (auto) 5.16 K/uL (1.40-6.50); Neutrophils % (auto) 58.2 %; Platelet Count 193 K/uL (130-400); RDW Coefficient of Variation 12.5 % (11.5-14.5); RDW Standard Deviation 43.3 fL (36.4-46.3); White Blood Count 8.87 K/ul (4.8-10.8)
[2024-12-16 13:47] LABS: Albumin Level 4.1 gm/dl (3.4-5.0); Bilirubin,Total 0.4 mg/dl (0.2-1.0); Calcium 9.3 mg/dl (8.6-10.3); Potassium 3.9 mmol/L (3.5-5.1)
[2024-12-16 13:53] LABS: Albumin Globulin Ratio 1.3 (0.9-2); BUN Creatinine Ratio 18.6 (10-20); Creatinine Clr Calc Pharmacy 63.9 ml/min; Globulin 3.2 gm/dl (2.5-4.0); Total Protein 7.3 gm/dl (6.0-8.3)
[2024-12-16 13:54] LABS: Troponin I High Sensitivity 7.4 pg/ml (0-14)
[2024-12-16] MEDS: CLOPIDOGREL BISULFATE 300 MG TAB PO STA (13:55)
[2024-12-16] MEDS: ASPIRIN CHEW 324 MG PO STA (13:55)
[2024-12-16 14:06] LABS: Partial Thromboplastin Ratio 0.9; Partial Thromboplastin Time 23 Seconds (21-31); Prothrombin Time 11.2 Seconds (9.0-12.0)
[2024-12-16] MEDS ORDERED: ACETAMINOPHEN 500 MG TAB PO PRN (14:29)
[2024-12-16] MEDS ORDERED: ONDANSETRON INJ 2 MG/ML 2 ML VIAL IV PRN (14:32)
--- NOTE | 2024-12-16 15:32 | History & Physical Report ---
Date of Service December 16, 2024 Assessment & Plan (1) TIA (transient ischemic attack): Plan: -asa, crestor -MRI brain -echo -carotid dopplers -CTA neck showing 80% stenosis of the left ICA, with 60% stenosis of right ICA -vascular surgery consulted -paula greenwood (2) HTN (hypertension): Plan: -coreg -lisinopril (3) HLD (hyperlipidemia): Plan: -crestor Plan Heparin SQ for DVT px History of Present Illness Chief Complaint: Left sided facial droop and slurred speach Primary Care Provider: Manuel Herzog DO Pt is a 79 y/o female with pmh of HTN, renal artery stenosis, who presents after having an episode of left sided facial droop and difficulty speaking while she was at [facility]. She was brought in by EMS, given ASA 325 and plavix. Her symptoms resolved by the time she was examined in the ER. She had CT/CTA head, which was negative for any acute infarcts, but did show 80% stenosis of the left ICA, with 60% stenosis of right ICA. Pt is being admitted for further TIA work up including, MRI, echo, carotid dopplers and vascular consult for carotid stenosis. Allergies Allergy/AdvReac Type Severity Reaction Status Date / Time latex Allergy Severe Painful Unverified 12/16/24 14:29 blisters Home Medications Medication Instructions Recorded Confirmed Type amlodipine 10 mg tablet 10 mg PO DAILY #90 tabs 01/26/24 12/16/24 Rx carvedilol 6.25 mg tablet 6.25 mg PO BID 90 days #180 tabs 01/26/24 12/16/24 Rx lisinopril 10 mg tablet 10 mg PO DAILY #90 tabs 01/26/24 12/16/24 Rx multivitamin (Daily Multi-Vitamin 1 tab PO DAILY 01/26/24 12/16/24 History tablet) aspirin 81 mg tablet,delayed 81 mg PO DAILY 07/28/24 12/16/24 History release rosuvastatin 20 mg tablet 20 mg PO DAILY #90 tabs 07/28/24 12/16/24 Rx ipratropium bromide 21 mcg (0.03 2 spray intranasal TID #30 mL 10/04/24 12/16/24 Rx %) nasal spray acetaminophen 500 mg tablet 500 mg PO Q6H PRN Pain 12/16/24 12/16/24 History omega 4-dur-ezx-fish oil 900 1 cap PO DAILY 12/16/24 12/16/24 History mg-1,400 mg capsule,delayed release Past Med/Surg History Problem List (Updated 12/16/24 @ 15:30 by Jay Bain MD) TIA (transient ischemic attack) Class 1 obesity due to excess calories with serious comorbidity and body mass index (BMI) of 33.0 to 33.9 in adult Right sciatic nerve pain Vitamin B12 deficiency Impaired fasting blood sugar Elevated homocysteine Right renal artery stenosis Medical History Aortic stenosis, mild HLD (hyperlipidemia) Renal artery arteriosclerosis Renal infarct HTN (hypertension) Hiatal hernia moderate, CT 2023 Nausea Environmental allergies Surgical History History of cholecystectomy Hx of total knee arthroplasty Family History Denies family history of Ovarian cancer Prostate cancer Myocardial infarction Breast cancer Colorectal cancer Social History Smoking Status: Never smoker Do You Dip or Chew Tobacco: No; Hx Alcohol Use: No Hx Substance Use: No Preferred Language: Georgian Communication Ability: Effective Senior Hr Business Partner Required: No Beliefs That Will Affect Care: None Current Living Situation: Other Current Living Situation Comment: Friend current occupational status: retired Feels Safe at Home: Yes Childhood Exposure to Second-Hand Smoke: No Diet: regular caffeine: Yes Dental Care, Regularly: No Physical Activity Frequency: 1-2 Times per Week Seatbelt Use: always Sunscreen Use: Yes Gender Identity: Female Assistive Devices: Denture - Upper, Denture - Lower and Glasses Review of Systems Review of Systems: CONST: Negative for fever, body aches and chills. HENT: Negative for neck pain/stiffness, headache, congestion, sore throat, swelling. EYES: Negative for discharge/pain or vision changes. RESP: Negative for cough/hemoptysis and shortness of breath. CV: Negative chest pain, difficulty breathing, palpitations. ABD: Negative pain, nausea, vomiting. : Negative increase frequency, dysuria, blood in urine or stool. MUSC: Negative for muscle aches, edema. SKIN: Negative rash, lesions/sores. NEURO: Negative headache, dizziness, weakness. Left sided facial droop, aphasia Physical Exam Physical Exam: GENERAL APPEARANCE NAD, activity normal for age, well developed/ well nourished, no cyanosis, pallor, or diaphoresis. EYES lids/conjunctiva normal. EARS/NOSE/THROAT Mucous membranes moist, nares normal, lips/teeth normal uvula midline without oral pharyngeal erythema, exudate or swelling TMs normal bilaterally. No lymphangitis/lymphedema. HEAD/NECK normocephalic atraumatic, no facial trauma, neck is supple. RESPIRATORY respiratory effort normal, speaks in full sentences, no tripod position, no accessory muscle use. Lungs clear to auscultation without rhonchi, wheezes, rales CARDIAC Regular rate and rhythm, no edema. ABDOMINAL Soft, ND/NT. No evidence of fluid wave. No pulsatile masses on exam, rebound tenderness, Reic sign or pain over Mcburney's point. MUSCLES/EXTREMITIES No abnormal range of motion, no swelling. SKIN Warm, pink and dry. No rashes, dermatoses, petechiae or lesions. NEUROLOGICAL Speech is clear and appropriate. Normal level of consciousness. Gait and coordination are normal. 5/5 strength in all extremities. PSYCH Normal mood and affect. Judgement/competence is appropriate Results & Data Results & Data Vital Signs (Past 12 Hours) Vital Signs Temp Pulse Pulse Resp BP BP Pulse Ox 12/16/24 14:51 72 22 154/81 H 93 12/16/24 13:52 74 20 156/79 H 92 12/16/24 13:51 68 18 156/79 H 12/16/24 13:27 82 18 184/84 H 12/16/24 13:26 80 21 184/84 H 95 12/16/24 13:10 76 19 184/89 H 93 12/16/24 13:09 76 18 184/89 H 90 12/16/24 13:04 77 12/16/24 13:01 78 18 180/88 H 93 12/16/24 12:40 93 12/16/24 12:40 36.6 C 76 20 174/91 H 92 O2 Del Method 12/16/24 14:51 12/16/24 13:52 Room Air 12/16/24 13:51 12/16/24 13:27 12/16/24 13:26 Room Air 12/16/24 13:10 Room Air 12/16/24 13:09 12/16/24 13:04 12/16/24 13:01 Room Air 12/16/24 12:40 Room Air 12/16/24 12:40 Room Air PG Care Time/CCT Total # of Minutes Spent Total Time Spent with Patient: Total time spent is greater than 50% in coordination of care (as documented) at patient's floor/unit and/or counseling patient: Coding Level of Care Code 69012 INT INP/OBS CARE 2/55MIN Diagnoses TIA (transient ischemic attack) G45.9 HTN (hypertension) I10 HLD (hyperlipidemia) E78.5
[2024-12-16] MEDS: carvediloL 6.25 MG TAB PO SCH (17:32)
--- NOTE | 2024-12-16 17:35 | Magnetic Resonance Report ---
Clinical History: Slurred speech. Possible stroke Technique: Multiple T1 and T2-weighted magnetic resonance images were obtained of the brain without gadolinium contrast Findings: There are multiple small foci of restricted diffusion involving the cortex of the right frontal and right parietal lobes, measuring up to 5 mm in size. These are concerning for small acute infarcts. There is cerebral atrophy, within expected limits for the patient's age. There are focal and confluent areas of increased T2 signal intensity within the periventricular white matter of the cerebral hemispheres bilaterally. This is most likely due to chronic small vessel ischemic disease. No definite mass lesion is seen on this noncontrast study. There is no intracranial hemorrhage or other fluid collection. No midline shift or other form of herniation is seen. There is no hydrocephalus. Normal flow-voids are seen within the arteries of the [id number]. The orbits appear unremarkable. There is near compete opacification of the right maxillary sinus due to fluid. The mastoid air cells appear clear. Impression: 1. Multiple small acute infarcts involving the cortex of the right frontal and right parietal lobes. This could be due to embolic disease. No large infarct is seen 2. Cerebral atrophy and chronic small vessel ischemic disease 3. Right maxillary sinusitis ACT 112: Positive. There are findings on this exam that require communication between the performing entity and the patient following Patient Test Result Information Act ([place] ACT 112) guidelines. Electronically signed by Raheem Lobo 12-16-2024 5:34 PM
[2024-12-16 17:40] VITALS: RESP 18
--- NOTE | 2024-12-16 18:52 | XCELERA ---
[id number]
--- NOTE | 2024-12-16 19:02 | Ultrasound Report ---
EXAM: US carotid doppler BI CLINICAL HISTORY: Carotid stenosis. TECHNIQUE: Ultrasound examination of the carotid arteries was performed in real time and duplex. One or more of the following were performed- spectral analysis, resistive index, waveform analysis, and pulsed Doppler. COMPARISON: None. FINDINGS: Doppler Profile: Vessel Right (PSV/EDV cm/sec) Left (PSV/EDV cm/sec) Common Carotid Artery (CCA) CCA proximal 78.9/14 - biphasic CCA mid 113/19.9?biphasic CCA distal 96.6/19.9?biphasic CCA proximal 96.6/16.2?biphasic CCA mid 131/21.7?biphasic CCA distal 128.3/25.9?biphasic Internal Carotid Artery (ICA) ICA proximal 100.2/16.2?biphasic ICA mid 102/21.7?biphasic ICA distal 60.4/13?biphasic ICA proximal 149.2/25.5?biphasic ICA mid 177.5/35.8?biphasic ICA distal 84.6/12.6?biphasic External Carotid Artery (ECA) ECA 220/15.4?triphasic 188.2/31.6?biphasic Vertebral Artery (VA) 48.2/18.6?biphasic 50/8.6?biphasic Right ICA/CCA Ratio 1.1 Left ICA/CCA Ratio 1.4 Plaque Characterization: Mild diffuse atherosclerotic changes in the bilateral carotid systems There is a significant atherosclerotic calcified plaque seen at the left CCA distal segment and extends to the left ICA mid-segment, causing moderate stenosis. Mild scattered calcified plaque is evident more at the right carotid bulbs, causing mild stenosis. Stenosis Evaluation: Left distal CCA /bulb moderate significant stenosis extending to the mid-segment of the left ICA indicated by the high P/S velocities, evident more at the Mid ICA segment. ICA/CCA ratio remains within normal limits (less than 2.0). Vertebral Arteries: Normal flow noted in the vertebral arteries bilaterally. No evidence of vertebral artery stenosis or subclavian steal phenomenon. Additional Findings: No evidence of dissection, aneurysm, or significant intimal thickening. IMPRESSION: 1. Significant atherosclerotic calcified plaque at the left CCA distal segment/bulb and extends till the left ICA mid-segment, causing moderate stenosis indicated by the high P/S velocities. Further CTA evaluation is advised if clinically indicated. 2. Mild diffuse atherosclerotic changes in the bilateral carotid systems. NASCET Criteria for carotid stenosis: Degree of Stenosis Measurement Criteria (Angiography) Peak Systolic Velocity (PSV) End Diastolic Velocity (EDV) PSV Ratio ICA/CCA Clinical Indications for Surgery Normal No narrowing 125 cm/s 40 cm/s 2.0 Not indicated for surgery Mild Stenosis 50% narrowing of the carotid artery 125 cm/s 40 cm/s 2.0 Generally, not indicated for surgery Moderate Stenosis 50% to 69% narrowing of the carotid artery 125 - 230 cm/s 40 - 100 cm/s 2.0 - 4.0 May be considered for surgery based on individual factors Severe Stenosis 70% to 99% narrowing of the carotid artery 230 cm/s 100 cm/s 4.0 Recommended for surgery in symptomatic patients Total Occlusion 100% blockage of the carotid artery No flow detected No flow detected Not applicable Surgery is not typically performed due to complete blockage Electronically signed by Darwin Herzog 12-16-2024 7:01 PM
[2024-12-16] MEDS: ACETAMINOPHEN 325 MG TAB PO PRN (20:10)
[2024-12-16] MEDS: HEPARIN SOD 5,000 UNIT/0.5 ML VIAL SQ SCH (21:06)
--- NOTE | 2024-12-16 23:08 | Electrocardiogram Report ---
Test Reason : Blood Pressure : */* mmHG Vent. Rate : 77 BPM Atrial Rate : 77 BPM P-R Int : 160 ms QRS Dur : 76 ms QT Int : 402 ms P-R-T Axes : 81 81 46 degrees QTcB Int : 454 ms Sinus rhythm with Premature supraventricular complexes Possible Right ventricular hypertrophy Abnormal ECG When compared with ECG of 26-Sep-2024 10:58, Premature supraventricular complexes are now Present Confirmed by David Guzman ([id number]) on 12/16/2024 11:08:30 PM Referred By: Confirmed By: David Guzman
--- NOTE | 2024-12-17 08:13 | Hospitalist Progress Note ---
Date of Service December 17, 2024 Assessment & Plan (1) TIA (transient ischemic attack): Plan: -asa, crestor -MRI brain -echo -carotid dopplers -CTA neck showing 80% stenosis of the left ICA, with 60% stenosis of right ICA -vascular surgery consulted -paula greenwood (2) HTN (hypertension): Plan: -coreg -lisinopril (3) HLD (hyperlipidemia): Plan: -crestor Plan 79 y/o female with pmh of HTN, renal artery stenosis, who presents after having an episode of left sided facial droop and difficulty speaking while she was at [facility]. She was brought in by EMS, given ASA 325 and plavix. Her symptoms resolved by the time she was examined in the ER. She had CT/CTA head, which was negative for any acute infarcts, but did show 80% stenosis of the left ICA, with 60% stenosis of right ICA. Pt is being admitted for further TIA work up including, MRI, echo, carotid dopplers and vascular consult for carotid stenosis. #TIA (transient ischemic attack): - asa, crestor - MRI brain showing multiple small acute infarcts involving the cortex of the right frontal and right parietal lobes - echo - carotid dopplers - CTA neck showing 80% stenosis of the left ICA, with 60% stenosis of right ICA - vascular surgery consulted - paula greenwood #HTN (hypertension): - coreg - lisinopril #HLD (hyperlipidemia): - crestor #DVT ppx: Heparin SQ Admission and Anticipated Discharge Date Admission Date: December 16, 2024 Results & Data Results & Data Vital Signs (Past 12 Hours) Vital Signs Temp Pulse Pulse Resp BP Pulse Ox O2 Del Method 12/17/24 07:44 36.5 C 70 18 160/80 H 95 Room Air 12/17/24 07:13 63 12/17/24 02:49 36.7 C 69 18 113/65 95 Room Air 12/16/24 22:44 36.8 C 70 18 116/67 95 Room Air 12/16/24 21:44 61 PG Care Time/CCT Total # of Minutes Spent Total Time Spent with Patient: Total time spent is greater than 50% in coordination of care (as documented) at patient's floor/unit and/or counseling patient: Coding Diagnoses TIA (transient ischemic attack) G45.9 HTN (hypertension) I10 HLD (hyperlipidemia) E78.5
[2024-12-17] MEDS: lisinopril 10 MG TAB PO SCH (09:32)
[2024-12-17] MEDS: ASPIRIN 81 MG ECTAB PO SCH (09:32)
[2024-12-17] MEDS: amLODIPine BESYLATE 5 MG TAB PO SCH (09:32)
--- NOTE | 2024-12-17 09:58 | History & Physical Report ---
Date of Service December 17, 2024 Assessment & Plan (1) Bilateral carotid artery stenosis: Plan: On her CTA this patient has bilateral carotid disease worse on the left than the right. Her MRI did show acute small infarcts in the right hemisphere consistent with embolic disease. Her left internal carotid artery is narrowed to 80 to 85%. We do recommend elective intervention for her asymptomatic left internal coronary stenosis. 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 Being that the narrowing is more than 50% and she is symptomatic intervention is recommended for the right carotid. The right carotid should be done for screening that she is symptomatic and then electively do the left carotid. We went over the risks and benefits of endarterectomy versus TCAR. Her and her son understood the risks options and benefits and elected to go ahead with the TCAR approach. Being that she is symptomatic this to be scheduled within the next 2 weeks. She needs to be on dual antiplatelets and a statin for at least 5 days prior to the procedure and nonstop for 30 days postprocedure. Preferably would like to keep the antiplatelets going for a total of 1 year post procedure. She can be discharged from our point of view and we will contact her this week with details about her planned surgery and her Plavix responder testing. Thank you very much for letting us participate in the care of this patient. Admission and Anticipated Discharge Date Admission Date: December 16, 2024 History of Present Illness Chief Complaint: Left facial droop and slurred speech, transient Primary Care Provider: Manuel Herzog, This is a 79-year-old female who was in her usual state of health when she suddenly developed left facial droop and slurred speech which lasted a few minutes. She denies any weakness of her upper or lower extremities during that time. In the emergency room a few had complete recovery. He has no previous history of ischemic attacks. There is no previous history of strokes. She does have a history of right renal artery stenosis. She also has a history of hypertension. She has no complaints of claudication of either lower extremity. She denies any residual symptoms. 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 She had a CT angiogram which showed an 80 to 85% narrowing of her left internal carotid artery and a 60% narrowing of the right internal carotid artery both with a moderate amount of plaque present. Allergies Allergy/AdvReac Type Severity Reaction Status Date / Time latex Allergy Severe Painful Unverified 12/16/24 14:29 blisters Home Medications Medication Instructions Recorded Confirmed Type amlodipine 10 mg tablet 10 mg PO DAILY #90 tabs 01/26/24 12/16/24 Rx carvedilol 6.25 mg tablet 6.25 mg PO BID 90 days #180 tabs 01/26/24 12/16/24 Rx lisinopril 10 mg tablet 10 mg PO DAILY #90 tabs 01/26/24 12/16/24 Rx multivitamin (Daily Multi-Vitamin 1 tab PO DAILY 01/26/24 12/16/24 History tablet) aspirin 81 mg tablet,delayed 81 mg PO DAILY 07/28/24 12/16/24 History release rosuvastatin 20 mg tablet 20 mg PO DAILY #90 tabs 07/28/24 12/16/24 Rx ipratropium bromide 21 mcg (0.03 2 spray intranasal TID #30 mL 10/04/24 12/16/24 Rx %) nasal spray acetaminophen 500 mg tablet 500 mg PO Q6H PRN Pain 12/16/24 12/16/24 History omega 7-cbt-lwx-fish oil 900 1 cap PO DAILY 12/16/24 12/16/24 History mg-1,400 mg capsule,delayed release Past Med/Surg History Problem List (Updated 12/17/24 @ 10:02 by Jaylan Nuñez MD) Bilateral carotid artery stenosis Slurred speech (Acute) Facial droop (Acute) Acute CVA (cerebrovascular accident) (Acute) TIA (transient ischemic attack) Class 1 obesity due to excess calories with serious comorbidity and body mass index (BMI) of 33.0 to 33.9 in adult Right sciatic nerve pain Vitamin B12 deficiency Impaired fasting blood sugar Elevated homocysteine Right renal artery stenosis Medical History Aortic stenosis, mild HLD (hyperlipidemia) Renal artery arteriosclerosis Renal infarct HTN (hypertension) Hiatal hernia moderate, CT 2023 Nausea Environmental allergies Surgical History History of cholecystectomy 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 Family History Denies family history of Ovarian cancer Prostate cancer Myocardial infarction Breast cancer Colorectal cancer Social History Smoking Status: Former smoker Do You Dip or Chew Tobacco: No; Hx Alcohol Use: No Hx Substance Use: No Preferred Language: Macedonian Communication Ability: Effective Spanish Language Lecturer Required: No Beliefs That Will Affect Care: None Current Living Situation: Family Current Living Situation Comment: son current occupational status: retired Feels Safe at Home: Yes Childhood Exposure to Second-Hand Smoke: No Diet: regular caffeine: Yes Dental Care, Regularly: No Physical Activity Frequency: 1-2 Times per Week Seatbelt Use: always Sunscreen Use: Yes Gender Identity: Female Assistive Devices: None Review of Systems All systems reviewed & are unremarkable except as noted in HPI & below Physical Exam Constitutional: WD/WN, vitals as above Respiratory: normal respiratory effort Cardiovascular: Rate/Rhythm: regular rate and regular rhythm Vessels: femoral pulses present and radial pulses present Extremities: normal capillary refill Gastrointestinal (Abdomen): Inspection/Auscultation: abdomen normal to inspection Percussion/Palpation: abdomen soft Neurologic: CN's II-XI intact bilaterally, normal sensation to monofilament, moves all extremities and awake Psychiatric: A+Ox3, euthymic affect Results & Data Vital Signs (Past 12 Hours) Vital Signs Temp Pulse Pulse Resp BP Pulse Ox O2 Del Method 12/17/24 07:44 36.5 C 70 18 160/80 H 95 Room Air 12/17/24 07:13 63 12/17/24 02:49 36.7 C 69 18 113/65 95 Room Air 12/16/24 22:44 36.8 C 70 18 116/67 95 Room Air
[2024-12-17] MEDS: ROSUVASTATIN CALCIUM 20 MG TAB PO SCH (10:10)
[2024-12-17] MEDS: OMEGA-3 (PURIFIED FISH OIL) 1 GM CAP PO SCH (10:10)
[2024-12-17] MEDS: MULTIVITAMIN TAB PO SCH (10:11)
[2024-12-17] MEDS: CLOPIDOGREL BISULFATE 75 MG TAB PO ONE (10:55)
[2024-12-17 11:34] VITALS: BP 148/76; TEMP 97.3; O2SAT 93
[2024-12-17] MEDS: LORATADINE 10 MG TAB PO SCH (12:21)
--- NOTE | 2024-12-17 13:29 | Discharge Summary ---
Discharge Summary Date of Service December 17, 2024 Principal Dx & Hospital Course #1 = Principal Diagnosis (1) TIA (transient ischemic attack): (2) HTN (hypertension): (3) HLD (hyperlipidemia): -crestor Plan 79 y/o female with pmh of HTN, renal artery stenosis, who presents after having an episode of left sided facial droop and difficulty speaking while she was at [facility]. She was brought in by EMS, given ASA 325 and plavix. Her symptoms resolved by the time she was examined in the ER. She had CT/CTA head, which was negative for any acute infarcts, but did show 80% stenosis of the left ICA, with 60% stenosis of right ICA. Pt is being admitted for further TIA work up including, MRI, echo, carotid dopplers and vascular consult for carotid stenosis. #TIA (transient ischemic attack): - MRI brain showing multiple small acute infarcts involving the cortex of the right frontal and right parietal lobes, no large infarct seen - echo without interatrial shunt, EF 55-60% - carotid dopplers (12/16/24): There is a significant atherosclerotic calcified plaque seen at the left CCA distal segment and extends to the left ICA mid- segment, causing moderate stenosis. - CTA neck showing 80% stenosis of the left ICA, with 60% stenosis of right ICA - vascular surgery recs appreciated, DAPT with outpatient follow up for TCAR - LEGAL COLLECTOR eval completed: given resolution of symptoms, no formal eval necessary - case also discussed with neurology, recs DAPT and high intensity statin, further management per vascular surgery, cleared for discharge #HTN (hypertension): - cont coreg, lisinopril, amlodipine #HLD (hyperlipidemia): - crestor 40mg po daily All plans discussed with pt and her son Admission HPI Per Admitting Provider This is a 79-year-old female who was in her usual state of health when she suddenly developed left facial droop and slurred speech which lasted a few mi nutes. She denies any weakness of her upper or lower extremities during that time. In the emergency room a few had complete recovery. He has no previous history of ischemic attacks. There is no previous history of strokes. She does have a history of right renal artery stenosis. She also has a history of hypertension. She has no complaints of claudication of either lower extremity. She denies any residual symptoms. 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 She had a CT angiogram which showed an 80 to 85% narrowing of her left internal carotid artery and a 60% narrowing of the right internal carotid artery both with a moderate amount of plaque present. Discharge Exam Gen: NAD, in bed comfortable HEENT: NC/AT, no facial drooping, MMM Lungs: CTAB CVS: s1s2nl, RRR Abd: nl bowel sounds, soft, NT : no knowles Ext: no edema Neuro: grossly normal, speaking in full sentences Psych: calm, cooperative Discharge Plan Discharge Items Patient Disposition: Home - Self-Care Reason For Visit: TIA Discharge Diagnosis: stroke Condition on Discharge: Fair Activity: Resume your previous activity Non-emergency contact: Primary Care Provider Call non-emergency contact if: you have any medication questions and your symptoms worsen Follow-up/Referrals: Jaylan Nuñez MD [Physician] - Manuel Herzog DO [Primary Care Provider] - Diet: Heart Healthy Addtl Attending Provider Instructions: If symptoms worsen, please go to the nearest hospital Pending Studies at Discharge: No Stand-Alone Forms: My [facility] bluebottlebiz, Smoking Cessation Medications and DC Order Prescriptions: New clopidogrel [Plavix] 75 mg tablet 75 mg PO DAILY Qty: 30 11RF rosuvastatin 40 mg tablet 40 mg PO DAILY Qty: 30 0RF Continued ipratropium bromide 21 mcg (0.03 %) spray,non-aerosol 2 spray intranasal TID Qty: 30 3RF multivitamin [Daily Multi-Vitamin] Tablet 1 tab PO DAILY amlodipine 10 mg tablet 10 mg PO DAILY Qty: 90 3RF carvedilol 6.25 mg tablet 6.25 mg PO BID 90 Days Qty: 180 3RF lisinopril 10 mg tablet 10 mg PO DAILY Qty: 90 3RF aspirin 81 mg tablet,delayed release (DR/EC) 81 mg PO DAILY acetaminophen [Tylenol Ex Str Rapid Release] 500 mg Tablet 500 mg PO Q6H PRN (Reason: Pain) Bru[place] 3 Fish Oil 900-1,400 mg Capsule,Delayed Release(Dr/Ec) 1 cap PO DAILY Discontinued rosuvastatin 20 mg tablet 20 mg PO DAILY Qty: 90 3RF Discharge Orders: Discharge Order (Routine); Ordered 12/17/24 Ordered By: Izabela Angela Admission Data Admit Date/Time: 12/16/24 14:32 Attending Provider: Izabela Angela Admit Provider: Jay Bain Primary Care Provider: Manuel Herzog Other Providers: Cristo Carty; Jaylan Nuñez Hospital Stay Data Consultations 12/16/24 13:34 ED Decision to Admit Stat 12/16/24 14:34 Consult Vascular Surgery Routine Diagnostic Imagining Performed 12/16/24 12:39 CT angio head w con Stat CT angio neck with con Stat CT head/brain wo con Stat 12/16/24 14:30 MRI Brain [MR brain wo con] Stat 12/16/24 14:32 US carotid doppler BI Stat Discharge Instructions Given to Patient (Per Discharging Provider) If symptoms worsen, please go to the nearest hospital Total Time Total Time Spent Total Time Spent (In Minutes): 45 Coding Level of Care Code 85219 INP/OBS DISCH >30 MIN Diagnoses TIA (transient ischemic attack) G45.9 HTN (hypertension) I10 HLD (hyperlipidemia) E78.5
[2024-12-17] MEDS: IPRATROPIUM BROMIDE NASAL SPRAY 0.03% 30 ML NAE SCH (13:47)
[2024-12-17 14:00] VITALS: PULSE 66
[2024-12-18] MEDS ORDERED: CLOPIDOGREL BISULFATE 75 MG TAB PO SCH (09:00)
== END 2024-12-17 14:21 | disposition home or self-care (01) | DRG 69 ==
LOC: ED 12:40 → EDINP 14:32 → INTOOBSV 14:32 → SUATTDRO 14:32 → 2N 17:01

== ENCOUNTER 2025-01-02 06:48 | Inpatient (IN) ==
--- NOTE | 2024-12-21 08:58 | Anesthesiology Consultation ---
Date of Service December 21, 2024 Assessment & Plan (1) Encounter for pre-operative examination: - discharge summary 12/17/24 [facility]: "...TIA (transient ischemic attack)- MRI brain showing multiple small acute infarcts involving the cortex of the right frontal and right parietal lobes, no large infarct seen- echo without interatrial shunt, EF 55-60%- carotid dopplers (12/16/24): There is a significant atherosclerotic calcified plaque seen at the left CCA distal segment and extends to the left ICA mid-segment, causing moderate stenosis- CTA neck showing 80% stenosis of the left ICA, with 60% stenosis of right ICA- vascular surgery recs appreciated, DAPT with outpatient follow up for TCAR- MARKETING OPERATIONS ASSOCIATE eval completed: given resolution of symptoms, no formal eval necessary- case also discussed with neurology, recs DAPT and high intensity statin, further management per vascular surgery, cleared for discharge..." - Per competitive shopper on 12/20/24: No known infectious disease contacts, current infectious disease symptoms in past 10 days or COVID positive test result in the past 30 days. Chart Review Chart Review: Acceptable Risk for Surgery and Patient NOT seen in Pre Admission Testing History Surgery Operation Date: 12/26/24 10:10 Proposed Procedures p Right Transcarotid Artery Revascularization - Jaylan Nuñez MD Height/Weight Height: 5 ft 7 in Weight: 95.254 kg Allergies Allergy/AdvReac Type Severity Reaction Status Date / Time latex Allergy Severe Painful Unverified 12/20/24 11:14 blisters Medications Home Medications Medication Instructions Recorded Confirmed Last Taken amlodipine 10 mg tablet 10 mg PO DAILY #90 tabs 01/26/24 12/20/24 12/16/24 carvedilol 6.25 mg tablet 6.25 mg PO BID 90 days #180 tabs 01/26/24 12/20/24 12/16/24 lisinopril 10 mg tablet 10 mg PO DAILY #90 tabs 01/26/24 12/20/24 12/16/24 multivitamin (Daily Multi-Vitamin 1 tab PO DAILY 01/26/24 12/20/24 12/16/24 tablet) aspirin 81 mg tablet,delayed 81 mg PO DAILY 07/28/24 12/20/24 12/16/24 release ipratropium bromide 21 mcg (0.03 2 spray intranasal TID #30 mL 10/04/24 12/20/24 12/15/24 %) nasal spray acetaminophen 500 mg tablet 500 mg PO Q6H PRN Pain 12/16/24 12/20/24 Unknown omega 9-oki-zrd-fish oil 900 1 cap PO DAILY 12/16/24 12/20/24 12/16/24 mg-1,400 mg capsule,delayed release clopidogrel 75 mg tablet (Plavix) 75 mg PO DAILY #30 tabs 12/17/24 12/20/24 Unknown rosuvastatin 40 mg tablet 40 mg PO DAILY #30 tabs 12/17/24 12/20/24 Unknown loratadine 10 mg tablet (Claritin) 10 mg PO QAM 12/19/24 12/20/24 Unknown Past Medical History Medical History (Updated 12/21/24 @ 08:53 by Emiliana Huang PA-C) Aortic stenosis, mild Environmental allergies Hiatal hernia moderate, CT 2023 HLD (hyperlipidemia) HTN (hypertension) 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- treated at [facility] - denies residual, all symptoms resolved On anticoagulant therapy Renal artery arteriosclerosis Renal infarct pt unaware, denies current issues Past Family History Family History Denies family history of Ovarian cancer Prostate cancer Myocardial infarction Breast cancer Colorectal cancer Past Surgical History Surgical History History of cholecystectomy Hx of colonoscopy 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 Social History Smoking Status: Former smoker Do You Dip or Chew Tobacco: No Smoking End Date: quit at 21 yrs old Hx Alcohol Use: No Hx Substance Use: No substance use type: does not use Lab Results Anesthesia Preop Results Results Anesthesia Widget: WBC 8.87 K/ul (4.8-10.8) 12/16/24 Hgb 12.6 g/dl (12.0-16.0) 12/16/24 Hct 36.5 % (37.0-47.0) L 12/16/24 Plt 193 K/uL (130-400) 12/16/24 Na 134 mmol/L (136-145) L 12/16/24 K 3.9 mmol/L (3.5-5.1) 12/16/24 Cl 103 mmol/L (98-107) 12/16/24 CO2 24 mmol/L (21-32) 12/16/24 BUN 16 mg/dl (6-23) 12/16/24 Creat 0.86 mg/dl (0.6-1.2) 12/16/24 Glucose Level 91 mg/dl (70-99(Fasting)) 12/16/24 PT 11.2 Seconds (9.0-12.0) 12/16/24 PTT 23 Seconds (21-31) 12/16/24 INR 1.0 (0.9-1.1) 12/16/24 Testing Electrocardiogram Date: 12/16/24 Sinus rhythm with premature supraventricular complexes, rate 77 bpm Possible RVH Chest X-Ray Date: 09/26/24 *1 view* 1. No acute process of the chest. 2. Hiatal hernia. Echocardiogram Date: 12/16/24 LVEF 55-60% No regional wall motion abnormalities Mild cLVH Mild mitral annular calcification with mild mitral stenosis (MG 4.0) Aortic valve sclerosis without stenosis Other Testing Carotid doppler 12/16/24 1. Significant atherosclerotic calcified plaque at the left CCA distal segment/bulb and extends till the left ICA mid-segment, causing moderate stenosis indicated by the high P/S velocities. Further CTA evaluation is advised if clinically indicated. 2. Mild diffuse atherosclerotic changes in the bilateral carotid systems. Brain MRI 12/16/24 1. Multiple small acute infarcts involving the cortex of the right frontal and right parietal lobes. This could be due to embolic disease. No large infarct is seen. 2. Cerebral atrophy and chronic small vessel ischemic disease 3. Right maxillary sinusitis Head and neck CTA 12/16/24 1. 80% stenosis at the origin of the left ICA with 60% stenosis at the origin of the right ICA secondary to moderate atherosclerosis. 2. Patent vertebral arteries. Head CT 12/16/24 No acute intracranial findings.
[~2025-01-02 06:48] MED LIST: LACTATED RINGER'S 1,000 ML IV SCH; ceFAZolin 2000MG 2,000 MG/15 ML SYR IV SCH
--- OUTSIDE RECORDS SUMMARY | 2025-01-02 06:51 | External Medical Summary | Continuity of Care Document ---
Author Name Unknown Organization [facility] [address] [place], [place] [id number] Care Team Providers Care Division Engineer Name Role Phone Mino Manuel Deejay Primary Care Physician [phone] [facility]counter [facility] [id number] Date(s): 12/20/24 - 12/20/24 [facility] [address] [facility] [address] [place], [facility] [address] [place], [place] [phone] Encounter Diagnosis Occlusion and stenosis of bilateral carotid arteries(Final) - Discharge Disposition: Home or Self Care Attending Physician: MARINE Ruiz Lynn Referring Physician: MARINE Ruiz Lynn Encounter Type: Clinic Allergies, Adverse Reactions, Alerts Substance Criticality Severity Reaction Reaction Severity Status Latex unknown Active Medications acetaminophen 500 mg oral tablet Start: 12/19/24 1:33:00 PM EDT, 1 tab, PO, q6h, PRN: as needed for pain Start Date: 12/19/24 Status: Ordered Repeat number: 1 amLODIPine 10 mg oral tablet Start: 12/19/24 1:31:00 PM EDT, 1 tab, PO, Daily Start Date: 12/19/24 Status: Ordered Repeat number: 1 aspirin 81 mg oral delayed release tablet Start: 12/19/24 1:32:00 PM EDT, 1 tab, PO, Daily Start Date: 12/19/24 Status: Ordered Repeat number: 1 carvedilol 6.25 mg oral tablet Start: 12/19/24 1:32:00 PM EDT, 1 tab, PO, bid Start Date: 12/19/24 Status: Ordered Repeat number: 1 clopidogrel 75 mg oral tablet Start: 12/19/24 1:31:00 PM EDT, 1 tab, PO, Daily Start Date: 12/19/24 Status: Ordered Repeat number: 1 ipratropium 21 mcg/inh (0.03%) nasal spray Start: 12/19/24 1:32:00 PM EDT, 2 spray, each nostril, tid, PRN: as needed for allergy symptoms Start Date: 12/19/24 Status: Ordered Repeat number: 1 lisinopril 10 mg oral tablet Start: 12/19/24 1:32:00 PM EDT, 1 tab, PO, Daily Start Date: 12/19/24 Status: Ordered Repeat number: 1 multivitamin Start: 12/19/24 1:31:00 PM EDT, 1 tab, PO, Daily Start Date: 12/19/24 Status: Ordered Repeat number: 1 [place]-3 Fish Oil 1000 mg oral capsule Start: 12/19/24 1:33:00 PM EDT, 1 cap, PO, Daily Start Date: 12/19/24 Status: Ordered Repeat number: 1 rosuvastatin 40 mg oral tablet Start: 12/19/24 1:31:00 PM EDT, 1 tab, PO, Daily Start Date: 12/19/24 Status: Ordered Repeat number: 1 Results Laboratory List Name Date Platelet Function (P2Y12 Receptor) (PLT FUNCTION P2Y12) 12/20/24 Most recent to oldest [Reference Range]: 1 P2Y12 Platelet Function [194-418 PRU] 20 3 PRU 1 (12/20/24 11:52 AM) 1Result Comment: PRU reference range is 194-418 (healthy adults, no drug treatment). Post Drug Results: Lower PRU levels are expected following treatment with antiplatelet drugs. Post-treatment values are usually below the stated reference range above. The post-drug PRU values reported in the VerifyNOW P2Y12 package insert are 18-435. This broader range reflects the variability in drug response and is consistent with significant numbers of patients with decreased sensitivity to P2Y12 receptor antagonists (prasugrel or clopidogrel). Clinical studies suggest an on-treatment PRU>230 indicates less than optimal response to therapy, and PRU<208 at 12-24 hours after percutaneous intervention or during follow-up is associated with a lower risk of cardiovascular events (1). (1).Standard-vs high-dose clopidogrel based on platelet function testing after percutaneouscoronary intervention: the GRAVITAS randomized trial. Deejay et al. NILSA. 2010October 30; 305(11): 9519-0262. doi: 10.1001/nilsa.2010.290 Patient Care team information Care Team Personnel Name: MARINE Ruiz Lynn Position: Physician Russian Language Instructor Exempt - Vasc Surg Member Role: Lifetime Relationship Address: [address] [place] [address] Telecom: [phone] Name: DO Herzog William Price Position: Referring Member Role: Primary Care Provider Address: [place] [address] [place] [address] Telecom: [phone] Insurance Providers Guarantor name: Health Plan Information #: 1 Payer: [employer] Member Number: [id number] Policy Number: NA Group Number: [id number] Payer Identifier: [id number] Health Plan Information #: 2 Payer: [employer] Member Number: [id number] Policy Number: NA Group Number: [id number] Payer Identifier: [id number]
--- OUTSIDE RECORDS SUMMARY | 2025-01-02 06:52 | External Medical Summary | Continuity of Care Document ---
Author Name Unknown Organization [facility] [address] Address [address] [place], [place] [id number] [facility] [id number] Date(s): 12/16/24 - 12/16/24 [facility] [address] [place], [place] [id number] [place] Discharge Disposition: Home or Self Care Attending Physician: MD Nilton, Dl Harris Referring Physician: DO Ortega Ryan M Encounter Type: Telehealth Insurance Providers Guarantor name: NA Health Plan Information #: 2 Payer: INSURANCE PENDING Member Number: NA Policy Number: NA Group Number: NA Payer Identifier: NA
[2025-01-02] MEDS ORDERED: fentaNYL citrate PF 100 MCG/2 ML VIAL IV PRN (07:11)
[2025-01-02] MEDS ORDERED: ePHEDrine sulfate 50 MG/ML AMP IV PRN (07:11)
[2025-01-02] MEDS ORDERED: PROMETHAZINE HCL 6.25 MG in SODIUM CHLORIDE 0.9% 50 ML IV PRN (07:11)
[2025-01-02] MEDS ORDERED: ATROPINE SULFATE 0.1 MG/ML 10ML SYR IV PRN (07:11)
[2025-01-02] MEDS ORDERED: FLUMAZENIL 0.1 MG/1 ML 10 ML VIAL IV PRN (07:11)
[2025-01-02] MEDS ORDERED: NALOXONE HCL 0.4 MG/1 ML VIAL/CARP IV PRN (07:11)
[2025-01-02] MEDS: SODIUM CHLORIDE 0.9% 1,000 ML IV SCH ×2 (07:31→12:26)
[2025-01-02] MEDS ORDERED: PROPOFOL IV EMULSION 10 MG/ML 20 ML VIAL IV ONE (07:32)
[2025-01-02] MEDS ORDERED: fentaNYL citrate PF 100 MCG/2 ML VIAL ONE ×2 (07:33→08:51)
[2025-01-02] MEDS ORDERED: MIDAZOLAM HCL 1 MG/ML 2ML VIAL ONE (07:34)
[2025-01-02] MEDS ORDERED: CISATRACURIUM BESYLATE IV SOLN 2 MG/ML 10 ML VIAL IV ONE (07:37)
[2025-01-02 07:38] LABS: Calcium 10.8 mg/dl (8.6-10.3); Creatinine Clr Calc Pharmacy 60.1 ml/min; Potassium 4.1 mmol/L (3.5-5.1)
--- NOTE | 2025-01-02 07:38 | History & Physical Bridge Note ---
Date of Service January 02, 2025 History & Physical Bridge Note I have examined the patient, reviewed the History & Physical and in the interval since the performance of the History & Physical I have noted the following changes of clinical significance: no changes noted
[2025-01-02] MEDS ORDERED: HEPARIN SOD (PORCINE) 1000 UNIT/ML ONE (07:45)
[2025-01-02] MEDS ORDERED: ETOMIDATE 2 MG/ML 20 ML VIAL IV ONE (07:54)
[2025-01-02] MEDS: ceFAZolin 2000MG 2,000 MG/15 ML SYR IV SCH ×2 (08:42→14:14)
[2025-01-02] MEDS ORDERED: GLYCOPYRROLATE 0.2 MG/ML VIAL ONE ×2 (08:47→09:28)
[2025-01-02] MEDS ORDERED: PHENYLEPHRINE 100MCG/ML 5ML SYR ONE ×3 (08:58→09:15)
[2025-01-02] MEDS ORDERED: ePHEDrine sulfate 50 MG/5 ML SYR ONE (08:58)
[2025-01-02] MEDS ORDERED: NEOSTIGMINE METHYLSULFATE 1 MG/ML 10ML VIAL ONE (09:15)
[2025-01-02] MEDS ORDERED: PHENYLEPHRINE HCL 25 MG/250 ML NSS IV ONE (09:16)
[2025-01-02] MEDS ORDERED: PROTAMINE SULFATE 10 MG/ML 5 ML VIAL IV ONE (09:30)
[2025-01-02] MEDS: GELATIN SPONGE SZ 100 ONE (09:38)
[2025-01-02] MEDS: THROMBIN FOR SOLN 20000 UNIT KIT ONE (09:38)
[2025-01-02] MEDS: SURGICEL ABSORB HEMOSTAT 2IN X 14IN TOP ONE (09:39)
[2025-01-02] MEDS: ARISTA ABSORBABLE HEMOSTAT 3GM TOP ONE (09:39)
[2025-01-02] MEDS: ceFAZolin 330 MG/ML 1 GM VIAL ONE (09:40)
[2025-01-02] MEDS: VISIPAQUE IV ONE (09:46)
[2025-01-02] MEDS: BUPIVACAINE/EPINEPHRINE 0.5% MPF 1:200,000 30 ML VIAL ONE (09:47)
--- NOTE | 2025-01-02 09:47 | Post Operative Brief Note ---
Immediate Post Op Note Date of Surgery January 02, 2025 Pre & Post Diagnosis Operation Date: 01/02/25 08:00 Pre-Op Diagnosis: Symptomatic Right Internal Carotid Artery Stenosis, Bilateral Carotid Artery Stenosis Post-Op Diagnosis: Symptomatic Right Internal Carotid Artery Stenosis, Bilateral Carotid Artery Stenosis I identified the patient and participated in the time-out.: Yes Procedure Operation Date: 01/02/25 08:00 Actual Procedures p Right Transcarotid Artery Revascularization, Ultrasound Left Common Femoral Vein(Right) - Jaylan Nuñez MD Surgeon Jaylan Nuñez MD Photographic Printer Md Emily Estimated Blood Loss 10 Findings Consistent with Post-Op Diagnosis Anesthesia Type General Complications none Disposition Accompanied Patient To Recovery: No Disposition: Recovery Room
[2025-01-02] MEDS ORDERED: STAT IV Infusion **Titration per Protocol STA (10:19)
[2025-01-02] MEDS: PHENYLEPHRINE/NSS 25 MG/250 ML BAG IV PRN (10:19)
[2025-01-02] MEDS ORDERED: ONDANSETRON INJ 2 MG/ML 2 ML VIAL IV PRN (10:19)
[2025-01-02] MEDS: ONDANSETRON INJ 2 MG/ML 2 ML VIAL IV PRN ×2 (10:23→15:05)
--- NOTE | 2025-01-02 10:25 | Operative Report ---
Post Operative Report Pre & Post Diagnosis Operation Date: 01/02/25 08:00 Pre-Op Diagnosis: Symptomatic Right Internal Carotid Artery Stenosis, Bilateral Carotid Artery Stenosis Post-Op Diagnosis: Symptomatic Right Internal Carotid Artery Stenosis, Bilateral Carotid Artery Stenosis I identified the patient and participated in the time-out.: Yes Procedure Operation Date: 01/02/25 08:00 Actual Procedures p Right Transcarotid Artery Revascularization, Ultrasound Left Common Femoral Vein(Right) - Jaylan Nuñez MD Right carotid artery pre-dilation balloon angioplasty with 5.5 x 35 mm SilkRoad balloon Transcarotid artery revascularization (TCAR) with 9-7 x 40 mm ENROUTE stent Surgeon Jaylan Nuñez MD Operator Technician MD Neo Estimated Blood Loss 10 Findings See Below Right transcarotid artery stent with good wall apposition and brisk flow past the level of the stent on completion angiogram. No areas of flow limiting stenosis visualized. Patient moved all extremities to command before leaving the operating room. Specimens None Anesthesia Type General Complications None Indications 79 year old F with history of aortic stenosis, hyperlipidemia, hypertension, renal infarcts, carotid artery stenosis who presented with transient left facial droop and slurred speech found to have 60% right internal carotid artery stenosis on CTA, as well as small right embolic strokes on MRI. Patient also has 80-85% stenosis of the left internal carotid artery on CTA. Given patient had symptomatic right carotid artery disease, we discussed proceeding with right carotid revascularization first. After discussion of risks and benefits, patient consented to the procedure. Description of Procedure The patient was brought to the operating room, where lines were placed and general anesthesia was accomplished by anesthesia team. A shoulder roll was placed and the neck was rotated towards the left side of the patient. The right neck and bilateral groins were prepped and patient was draped in the usual sterile fashion. A timeout was performed identifying the correct patient by name, procedure, and location of procedure and all were in agreement. A 4cm transverse incision was made between the sternal and clavicular heads of the sternocleidomastoid muscle. The muscle heads were retracted to each side and the carotid sheath was identified. Using blunt dissection, the carotid sheath was opened and about 3cm of common carotid artery (CCA) were isolated. Umbilical tape was placed around the proximal CCA under direct visualization. A 5-0 prolene U-stitch was pre-placed in the anterior wall of the CCA to facilitate hemostasis after removal of the arterial sheath at completion of the procedure. The patient was given 8,000 units of IV heparin. The contralateral (left) common femoral vein was accessed under ultrasound guidance using a micropuncture needle, and a wire and sheath were placed using modified Seldinger technique. The venous return sheath was advanced into the common femoral vein over the 0.035" wire. Blood was aspirated from the flow line and the sheath was flushed with heparinized saline.The sheath was secured to the patient's skin with a 2-0 silk stitch to maintain position in the vessel. We then turned our attention back to the right neck. ACT was confirmed to be above 250 seconds prior to arterial access. A 4-Amharic non-stiffened micropuncture set was used to first puncture the CCA with a 21G needle through the pre-placed U- stitch while holding gentle traction on the umbilical tape to stabilize the CCA within the incision. The micropuncture wire was advanced 3-4cm into the CCA and the 21G needle removed. The micropuncture sheath was advanced 3cm into the CCA and the wire and dilator were removed. A cerebral angiogram was obtained after ensuring there were no air bubbles in the system. The J-tipped guidewire was then inserted stopping short of the lesion at the level of the CCA. The micropuncture sheath was removed over the wire and the transcarotid arterial sheath was advanced under fluoroscopy to the 2.5cm marker and the 0.035" wire and dilator were removed. The arterial sheath was sutured to the patient at two sites. The Flow Controller was connected to the transcarotid arterial sheath, prepared by passively allowing arterial blood to backfill the line and then it was connected to the venous return sheath. The CCA was clamped proximally with a Mirna tourniquet to ensure active flow reversal. Heparinized saline was delivered into the venous flow line to confirm adequate flow reversal. An angiogram was performed. TCAR timeout was performed, heart rate was >70bpm and systolic BP was >140mmHg. Patient had been pretreated with glycopyrrolate and atropine was available. The lesion was crossed with an 0.014" guidewire and pre- dilation balloon angioplasty was performed with a 5.5 x 35 mm SilkRoad rapid exchange balloon to 8 atmospheres. A 9-7 x 40 mm ENROUTE transcarotid stent was placed. After allowing at least 2 minutes of continued flow reversal, a completion angiogram was performed showing appropriate stent position with good wall apposition. There were no areas of significant stenosis visualized and there was brisk flow past the level of the stent. At TCAR case completion, antegrade flow was restored by releasing the tourniquet on the CCA and closing the stopcocks to the flow lines. The total clamp time was 8 minutes. The transcarotid arterial sheath was removed and the pre-placed suture was tied. 25mg of protamine were given. A repeat ACT was obtained and was <150. The venous return sheath was removed and hemostasis achieved with manual compression. The neck incision was irrigated with antibiotic solution and was hemostatic before closure. 10cc of 0.25% marcaine with epinephrine were used for local anesthesia around skin edges. The platysma was approximated with 3-0 Vicryl running suture and the skin was closed with 4-0 running Vicryl suture and covered with Dermabond. The patient tolerated the procedure well and was extubated in the operating room. She was moving all four extremities to command prior to transfer to the recovery room. All counts were correct at the end of the procedure. Fluoroscopy time was 2 minutes, radiation dose was 34 mGy and 9 cc of contrast were used. Dr. Nuñez was present and participated in all critical parts of the procedure. I attest to the content of the Intraoperative Record and any orders documented therein. Any exceptions are noted below.
[2025-01-02] MEDS: MoRPHine SULFATE 2 MG/ML CARP IV STA (11:14)
--- NOTE | 2025-01-02 11:47 | Electrocardiogram Report ---
Test Reason : Blood Pressure : */* mmHG Vent. Rate : 62 BPM Atrial Rate : 62 BPM P-R Int : 168 ms QRS Dur : 74 ms QT Int : 458 ms P-R-T Axes : 47 79 50 degrees QTcB Int : 464 ms Poor data quality, interpretation may be adversely affected Normal sinus rhythm Increased R/S ratio in V1, consider early transition or posterior infarct Nonspecific ST abnormality Abnormal ECG When compared with ECG of 16-Dec-2024 12:54, Premature supraventricular complexes are no longer Present Confirmed by Thaddeus Saldana ([id number]) on 01/02/2025 11:47:14 AM Referred By: Jaylan Nuñez Confirmed By: Thaddeus Saldana
[2025-01-02] MEDS: MoRPHine SULFATE 2 MG/ML CARP ONE (12:00)
--- NOTE | 2025-01-02 12:50 | Anesthesiology Progress Note ---
Date of Service January 02, 2025 Anesthesia Post Procedure Vital Signs Vital Signs: Temp Pulse Pulse Pulse Resp BP BP 01/02/25 12:19 56 L 16 107/51 L 134/54 L 01/02/25 12:04 58 L 01/02/25 11:55 36.4 C L 63 16 126/64 01/02/25 11:36 60 21 115/64 117/52 L 01/02/25 11:27 62 01/02/25 11:25 60 15 114/58 L 106/46 L 01/02/25 11:15 61 18 128/64 123/53 L 01/02/25 11:05 58 L 15 108/52 L 101/45 L 01/02/25 10:55 59 L 18 117/58 L 116/45 L 01/02/25 10:45 36.0 C L 55 L 15 125/58 L 125/49 L 01/02/25 10:35 58 L 18 130/57 L 108/46 L 01/02/25 10:25 61 19 119/63 107/46 L 01/02/25 10:15 71 22 102/58 L 94/46 L 01/02/25 10:09 36.0 C L 77 17 86/58 L 01/02/25 07:17 36.7 C 85 20 168/72 H Pulse Ox O2 Del Method O2 Flow Rate 01/02/25 12:19 96 Room Air 01/02/25 12:04 01/02/25 11:55 93 Room Air 01/02/25 11:36 95 Nasal Cannula 2 01/02/25 11:27 01/02/25 11:25 95 Nasal Cannula 2 01/02/25 11:15 96 Nasal Cannula 2 01/02/25 11:05 94 Nasal Cannula 2 01/02/25 10:55 91 Nasal Cannula 2 01/02/25 10:45 93 Room Air 01/02/25 10:35 94 Oxymask 4 01/02/25 10:25 96 Oxymask 8 01/02/25 10:15 96 Oxymask 8 01/02/25 10:09 95 Oxymask 8 01/02/25 07:17 99 Room Air Pain Intensity Abdomen: Pain Intensity: 4 Transfer of Care Handoff Completed per policy Notes Mental Status: alert / awake / arousable Patient Amnestic to Procedure: Yes Nausea / Vomiting: adequately controlled Pain: adequately controlled Airway Patency, RR, SpO2: stable & adequate BP & HR: stable & adequate Hydration State: stable & adequate Anesthetic Complications: no major complications apparent
[2025-01-02] MEDS: IPRATROPIUM BROMIDE NASAL SPRAY 0.03% 30 ML SCH (14:14)
--- NOTE | 2025-01-02 14:54 | Critical Care Consultation ---
Date of Consultation January 02, 2025 Assessment & Plan (1) Bilateral carotid artery stenosis: (2) Hypotension after procedure: (3) Nausea & vomiting: Plan Bilateral carotid stenosis s/p right TCAR -Right TCAR on 01/02 -Blood pressure goals per vascular surgery -Neurovascular checks per vascular surgery Hypotension related to possible carotid baroreceptor stimulation v. anesthesia -Titrate to maintain MAP > 65 -Patient came out of OR on phenylephrine at 0.3. Currently off at this time. Nausea and vomiting -PRN Zofran for nausea -- History of hypertension On Coreg, lisinopril, amlodipine and rosuvastatin at home Supervising Physician Co-Signing Physician Notes I saw and evaluated the patient with MARQUISE Day, and agree with findings and plan as documented in the note. 79-year-old female came to the hospital for right-sided TCAR Sent to the ICU for post op care At the time of examination patient's systolic blood pressure was in the 120s, heart rate was in the mid 50s. Saturation 97% on room air She was complaining of some nausea and did have a bout of vomiting on the way to the ICU. She got Zofran in the PACU. She denied any shortness of breath, no chest pain, no abdominal pain. Mild soreness at the site of the incision Denied any headache, no blurry vision No weakness. Has been afebrile Social history: Used to socially smoke, quit around the age of 41. Constitutional: No acute distress HEENT: EOMI, PERRLA, right-sided incision clean Respiratory system: Good air entry bilaterally, no wheeze, no rhonchi, positive crackles appreciated bilaterally, more on the right side CVS: S1-S2 positive, no murmurs or gallops Abdomen: Soft, nontender, nondistended, positive bowel sounds x4, obese Extremities: +2 pulses bilaterally radialis/ dorsalis pedis, no cyanosis, no edema Neuro: Awake alert oriented x3, cranial nerves II to XII grossly intact, strength 5/5 bilateral upper and lower extremity Psych: Normal mood and affect G/U: Positive Chavez --Prophylaxis VTE: IPC GI: Pantoprazole Lines: Left radial Diet: Cardiorenal Plan: Strict ins and outs Continue with neurochecks as per protocol Monitor for any signs of bleeding. Given the patient is bradycardic would recommend holding Coreg. Calcium was mildly elevated at 10.8 today. Recommend continue with IV fluids For nausea Zofran will be added, pantoprazole for GERD Perio antibiotics as per vascular surgery Please note the above document was generated using voice recognition software. It may contain grammatical, syntax or spelling errors.Any formal questions or concerns about the content, text or information contained within the body of this dictation should be directly addressed to the provider for clarification. History of Present Illness Reason for Consultation: Post operative evaluation and management of right TCAR Attending Physician: Jaylan Nuñez MD History of Present Illness Maria Isabel Buitrago is a 79-year-old female with past medical history significant for HTN, HLD, renal infarcts, TIA, bilateral carotid stenosis, obesity, sciatic nerve pain; who presented to [facility] on 01/02/2025 for a planned right TCAR for carotid stenosis. Per documentation procedure went well without complication. The patient was extubated and brought to the ICU post operatively for continued evaluation and management of right TCAR with hypotension requiring vasopressors. Allergies Allergy/AdvReac Type Severity Reaction Status Date / Time latex Allergy Severe Painful Verified 01/02/25 07:05 blisters Home Medications Medication Instructions Recorded Confirmed Type amlodipine 10 mg tablet 10 mg PO DAILY #90 tabs 01/26/24 01/02/25 Rx carvedilol 6.25 mg tablet 6.25 mg PO BID 90 days #180 tabs 01/26/24 01/02/25 Rx lisinopril 10 mg tablet 10 mg PO DAILY #90 tabs 01/26/24 01/02/25 Rx multivitamin (Daily Multi-Vitamin 1 tab PO DAILY 01/26/24 01/02/25 History tablet) aspirin 81 mg tablet,delayed 81 mg PO DAILY 07/28/24 01/02/25 History release ipratropium bromide 21 mcg (0.03 2 spray intranasal TID #30 mL 10/04/24 01/02/25 Rx %) nasal spray acetaminophen 500 mg tablet 500 mg PO Q6H PRN Pain 12/16/24 01/02/25 History omega 3-gbo-jwc-fish oil 900 1 cap PO DAILY 12/16/24 01/02/25 History mg-1,400 mg capsule,delayed release rosuvastatin 40 mg tablet 40 mg PO DAILY #30 tabs 12/17/24 01/02/25 Rx loratadine 10 mg tablet (Claritin) 10 mg PO QAM 12/19/24 01/02/25 History Brilinta 01/02/25 History Patient History Medical History Aortic stenosis, mild Environmental allergies Hiatal hernia moderate, CT 2023 HLD (hyperlipidemia) HTN (hypertension) 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- treated at [facility] - denies residual, all symptoms resolved On anticoagulant therapy Renal artery arteriosclerosis Renal infarct pt unaware, denies current issues Surgical History History of cholecystectomy Hx of colonoscopy 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 Family History Denies family history of Ovarian cancer Prostate cancer Myocardial infarction Breast cancer Colorectal cancer Social History Smoking Status: Former smoker Tobacco Type: Cigarettes Smoking End Date: quit at 21 yrs old; Second Hand Exposure: No; Do You Dip or Chew Tobacco: No; Tobacco Cessation Education Requested by Patient: No Hx Alcohol Use: No Hx Substance Use: No Preferred Language: Kazakh Communication Ability: Effective Technical Lead Required: No Beliefs That Will Affect Care: None Current Living Situation: Family Current Living Situation Comment: son current occupational status: retired Other Information That Helps Us Care for You: No Feels Safe at Home: Yes Safety Concerns: Feels Safe At This Time Childhood Exposure to Second-Hand Smoke: No Diet: regular caffeine: Yes Dental Care, Regularly: No Physical Activity Frequency: 1-2 Times per Week Seatbelt Use: always Sunscreen Use: Yes Gender Identity: Female Assistive Devices: Denture - Upper, Denture - Lower and Glasses Review of Systems 2 Review of Systems: All systems reviewed & are unremarkable except as noted in HPI & below Physical Exam 2 Physical Exam: GENERAL APPEARANCE NAD, activity normal for age, well developed/ well nourished, no apparent distress. HEAD/NECK normocephalic atraumatic, no facial trauma, neck is supple. Right lower neck incision site open to air w/o bleeding or hematoma. RESPIRATORY respiratory effort normal, speaks in full sentences, no tripod position, no accessory muscle use. Lungs clear to auscultation without rhonchi, wheezes, rales CARDIAC Regular rate and rhythm, no edema. ABDOMINAL Soft, ND/NT. Normoactive bowel sounds in all quadrants. MUSCLES/EXTREMITIES No abnormal range of motion, no swelling. Left femoral vein access site without bleeding or hematoma. SKIN Warm, pink and dry. No rashes, dermatoses, petechiae or lesions. NEUROLOGICAL Speech is clear and appropriate. Normal level of consciousness. Gait and coordination are normal. 5/5 strength in all extremities. PSYCH Normal mood and affect. Judgement/competence is appropriate Results & Data Results & Data Vital Signs (Past 12 Hours) Vital Signs Temp Pulse Pulse Pulse Resp BP BP 01/02/25 13:45 49 L 11 L 144/57 H 01/02/25 13:33 52 L 15 01/02/25 13:18 60 17 01/02/25 13:00 55 L 19 01/02/25 13:00 121/67 01/02/25 12:51 57 L 23 01/02/25 12:39 56 L 18 01/02/25 12:27 54 L 16 01/02/25 12:19 56 L 16 107/51 L 01/02/25 12:04 58 L 01/02/25 12:01 107/51 L 01/02/25 12:00 59 L 19 01/02/25 11:55 36.4 C L 63 16 126/64 01/02/25 11:36 60 21 115/64 01/02/25 11:27 62 01/02/25 11:25 60 15 114/58 L 01/02/25 11:15 61 18 128/64 01/02/25 11:05 58 L 15 108/52 L 01/02/25 10:55 59 L 18 117/58 L 01/02/25 10:45 36.0 C L 55 L 15 125/58 L 01/02/25 10:35 58 L 18 130/57 L 01/02/25 10:25 61 19 119/63 01/02/25 10:15 71 22 102/58 L 01/02/25 10:09 36.0 C L 77 17 86/58 L 01/02/25 07:17 36.7 C 85 20 168/72 H BP Pulse Ox O2 Del Method O2 Flow Rate 05/19/25 13:45 96 Room Air 01/02/25 13:33 97 01/02/25 13:18 96 01/02/25 13:00 01/02/25 13:00 01/02/25 12:51 96 01/02/25 12:39 97 01/02/25 12:27 95 01/02/25 12:19 134/54 L 96 Room Air 01/02/25 12:04 01/02/25 12:01 01/02/25 12:00 95 01/02/25 11:55 93 Room Air 01/02/25 11:36 117/52 L 95 Nasal Cannula 2 01/02/25 11:27 01/02/25 11:25 106/46 L 95 Nasal Cannula 2 01/02/25 11:15 123/53 L 96 Nasal Cannula 2 01/02/25 11:05 101/45 L 94 Nasal Cannula 2 01/02/25 10:55 116/45 L 91 Nasal Cannula 2 01/02/25 10:45 125/49 L 93 Room Air 01/02/25 10:35 108/46 L 94 Oxymask 4 01/02/25 10:25 107/46 L 96 Oxymask 8 01/02/25 10:15 94/46 L 96 Oxymask 8 01/02/25 10:09 95 Oxymask 8 01/02/25 07:17 99 Room Air Laboratory Results 01/02/25 06:48 Abnormal Lab Results 01/02/25 01/02/25 01/02/25 06:48 09:18 09:39 Activ Coag Time Kaolin 279 H 135 Sodium 139 Potassium 4.1 Chloride 106 Carbon Dioxide 26 Anion Gap 7 BUN 16 Creatinine 0.89 Est Cr Clr Drug Dosing 60.1 eGFR 66.32 BUN/Creatinine Ratio 18.0 Glucose 120 H Calcium 10.8 H Nasal Screen MRSA (PCR) Blood Type A Positive Antibody Screen NEGATIVE 01/02/25 11:52 Activ Coag Time Kaolin Sodium Potassium Chloride Carbon Dioxide Anion Gap BUN Creatinine Est Cr Clr Drug Dosing eGFR BUN/Creatinine Ratio Glucose Calcium Nasal Screen MRSA (PCR) Negative Blood Type Antibody Screen Diagnostic Findings No diagnostic studies. Coding Level of Care Code 75923 INT INP/OBS CARE 2/55MIN Diagnoses Bilateral carotid artery stenosis I65.23 Hypotension after procedure I95.81 Nausea & vomiting R11.2
[2025-01-02] MEDS: PANTOprazole 40 MG TAB PO SCH (15:08)
[2025-01-02] MEDS: PROMETHAZINE 12.5 MG/50.5 ML BAG IV STA (19:40)
[2025-01-02] MEDS: ACETAMINOPHEN 500 MG TAB PO PRN (21:22)
[2025-01-02] MEDS: TICAGRELOR 90 MG TAB PO SCH (21:22)
[2025-01-02] MEDS: carvediloL 6.25 MG TAB PO SCH (21:25)
--- NOTE | 2025-01-03 07:22 | Critical Care Progress Note ---
Date of Service January 03, 2025 Assessment & Plan (1) Nausea & vomiting: (2) Hypotension after procedure: (3) Bilateral carotid artery stenosis: (4) Class 1 obesity due to excess calories with serious comorbidity and body mass index (BMI) of 33.0 to 33.9 in adult: (5) HLD (hyperlipidemia): (6) Hiatal hernia: (7) Shock circulatory: Plan Bilateral carotid stenosis s/p right TCAR -Right TCAR on 01/02 -Blood pressure goals per vascular surgery -Neurovascular checks per vascular surgery Hypotension related to possible carotid baroreceptor stimulation v. anesthesia -Titrate to maintain MAP > 65, SBP > 100 -Patient came out of OR on phenylephrine at 0.5 was able to titrate off. -Overnight patient with asymptomatic hypotension with SBP to the 90's. Phenylephrine gtt restarted currently at 0.5. -Hold home BP meds this am. Nausea and vomiting -PRN Zofran for nausea. Refractory overnight. -Phenergan overnight with improvement -Appetite improved this am History of hypertension -On Coreg, lisinopril, amlodipine and rosuvastatin at home. -Hold this am due to hypotension this am Admission and Anticipated Discharge Date Admission Date: January 02, 2025 Supervising Physician Co-Signing Physician Notes I saw and evaluated the patient with MARQUISE Day, and agree with findings and plan as documented in the note. Patient seen and examined at bedside. No acute distress Overnight patient blood pressure started to go down and she needed resuming of phenylephrine. Her heart rate was in the low 70s. Systolic blood pressure was in the 100s while on phenylephrine Denies any nausea vomiting since coming to the ICU yesterday Complains of sore throat. No difficulty swallowing. Was able to finish her breakfast without any issues No shortness of breath Complaining of some right flank pain which was reproducible on palpation. No bruising appreciated at the site. No headache or blurry vision No weakness. Has been afebrile Social history: Used to socially smoke, quit around the age of 41. Constitutional: No acute distress HEENT: EOMI, PERRLA, right-sided incision clean Respiratory system: Good air entry bilaterally, no wheeze, no rhonchi, positive crackles bilateral lower lobes CVS: S1-S2 positive, no murmurs or gallops Abdomen: Soft, nontender, nondistended, positive bowel sounds x4, obese Extremities: +2 pulses bilaterally radialis/ dorsalis pedis, no cyanosis, no edema Neuro: Awake alert oriented x3, cranial nerves II to XII grossly intact, strength 5/5 bilateral upper and lower extremity Psych: Normal mood and affect G/U: Positive Chavez --Prophylaxis VTE: IPC GI: Pantoprazole Lines: Left radial Diet: Cardiorenal Plan: In/out: +2.1 L, urine output 455 Unfortunately patient's blood pressure dropped early in the morning and she needed to be restarted on phenylephrine. She is on 0.6 right now. Continue to hold blood pressure medications. Will start her on IV fluids Out of the bed to chair. Disposition as per vascular surgery Please note the above document was generated using voice recognition software. It may contain grammatical, syntax or spelling errors.Any formal questions or concerns about the content, text or information contained within the body of this dictation should be directly addressed to the provider for clarification. Subjective "I have pain on my right side probably from laying in bed. Otherwise I feel good." Patient with nausea refractory to Zofran. Given Phenergan with improvement of nausea. Patient required reinitiation of phenylephrine gtt overnight due to asymptomatic hypotension. Review of Systems 2 Review of Systems: All systems reviewed & are unremarkable except as noted in HPI & below Physical Exam 2 Physical Exam: GENERAL APPEARANCE NAD, activity normal for age, well developed/ well nourished, no apparent distress. HEAD/NECK normocephalic atraumatic, no facial trauma, neck is supple. Right lower neck incision site open to air w/o bleeding or hematoma. RESPIRATORY respiratory effort normal, speaks in full sentences, no tripod position, no accessory muscle use. Lungs clear to auscultation without rhonchi, wheezes, rales CARDIAC Regular rate and rhythm, no edema. ABDOMINAL Soft, ND/NT. Normoactive bowel sounds in all quadrants. MUSCLES/EXTREMITIES No abnormal range of motion, no swelling. Left femoral vein access site without bleeding or hematoma. Right upper back pain without signs of bleeding or other injury. SKIN Warm, pink and dry. No rashes, dermatoses, petechiae or lesions. NEUROLOGICAL Speech is clear and appropriate. Normal level of consciousness. Gait and coordination are normal. 5/5 strength in all extremities. PSYCH Normal mood and affect. Judgement/competence is appropriate Results & Data Results & Data Vital Signs (Past 12 Hours) Vital Signs Temp Pulse Resp BP Pulse Ox O2 Del Method O2 Flow Rate 01/03/25 06:30 120/52 L 01/03/25 06:30 120/52 L 01/03/25 06:09 65 22 95 01/03/25 06:00 65 22 95 01/03/25 06:00 121/52 L 01/03/25 06:00 121/52 L 01/03/25 06:00 121/52 L 01/03/25 05:03 65 21 97 01/03/25 05:00 125/50 L 01/03/25 05:00 125/50 L 01/03/25 04:51 66 22 97 01/03/25 04:41 123/58 L 01/03/25 04:33 66 20 98 01/03/25 04:30 120/53 L 01/03/25 04:27 66 20 97 01/03/25 04:06 65 20 97 01/03/25 04:00 126/59 L 01/03/25 04:00 126/59 L 01/03/25 03:57 67 20 98 01/03/25 03:30 65 20 96 01/03/25 03:30 124/54 L 01/03/25 03:30 124/54 L 01/03/25 03:30 124/54 L 01/03/25 03:30 124/54 L 01/03/25 03:30 124/54 L 01/03/25 03:09 65 24 96 01/03/25 03:00 90/51 L 01/03/25 03:00 36.3 C L 01/03/25 02:58 95/52 L 01/03/25 02:00 107/48 L 01/03/25 02:00 75 25 H 93 01/03/25 01:06 84 24 94 01/03/25 00:00 116/53 L 01/03/25 00:00 116/53 L 01/03/25 00:00 116/53 L 01/03/25 00:00 85 23 94 01/02/25 23:52 78 01/02/25 23:39 Nasal Cannula 2 01/02/25 23:12 100 H 23 95 01/02/25 23:00 108/49 L 01/02/25 23:00 108/49 L 01/02/25 23:00 36.5 C 01/02/25 22:57 77 20 95 01/02/25 22:03 83 22 90 01/02/25 22:00 104/60 01/02/25 21:54 77 23 90 01/02/25 21:27 84 19 91 01/02/25 21:22 98/62 L 01/02/25 21:22 98/62 L 01/02/25 21:22 98/62 L 01/02/25 21:15 75 21 90 01/02/25 21:03 79/43 L 01/02/25 21:03 79/43 L 01/02/25 21:03 79/43 L 01/02/25 21:01 66/52 L 01/02/25 21:00 85 25 H 78 L 01/02/25 20:15 80 25 H 95 01/02/25 20:00 107/81 01/02/25 20:00 107/81 01/02/25 19:57 77 21 95 Laboratory Results 01/02/25 06:48 Abnormal Lab Results 01/02/25 01/02/25 01/02/25 06:48 09:18 09:39 Activ Coag Time Kaolin 279 H 135 Sodium 139 Potassium 4.1 Chloride 106 Carbon Dioxide 26 Anion Gap 7 BUN 16 Creatinine 0.89 Est Cr Clr Drug Dosing 60.1 eGFR 66.32 BUN/Creatinine Ratio 18.0 Glucose 120 H POC Glucose Calcium 10.8 H Nasal Screen MRSA (PCR) Blood Type A Positive Antibody Screen NEGATIVE 01/02/25 01/02/25 01/02/25 11:52 18:38 23:25 Activ Coag Time Kaolin Sodium Potassium Chloride Carbon Dioxide Anion Gap BUN Creatinine Est Cr Clr Drug Dosing eGFR BUN/Creatinine Ratio Glucose POC Glucose 113 H 112 H Calcium Nasal Screen MRSA (PCR) Negative Blood Type Antibody Screen 01/03/25 05:21 Activ Coag Time Kaolin Sodium Potassium Chloride Carbon Dioxide Anion Gap BUN Creatinine Est Cr Clr Drug Dosing eGFR BUN/Creatinine Ratio Glucose POC Glucose 117 H Calcium Nasal Screen MRSA (PCR) Blood Type Antibody Screen Coding Level of Care Code 63306 SUB INP/OBS CARE 3/50MIN Diagnoses Bilious vomiting with nausea R11.14 Vomiting type: bilious vomiting Hypotension after procedure I95.81 Bilateral carotid artery stenosis I65.23 Class 1 obesity due to excess calories with serious comorbidity and body mass index (BMI) of 33.0 to 33.9 in adult E66.811; E66.09; Z68.33 HLD (hyperlipidemia) E78.5 Hiatal hernia K44.9 Shock circulatory R57.9 (1) Nausea & vomiting Vomiting type: bilious vomiting Qualified Code(s): R11.14 - Bilious vomiting
[2025-01-03] MEDS ORDERED: CHLORASEPTIC (PHENOL) 1.4% SOLN 180 ML BTL MT PRN (08:12)
[2025-01-03] MEDS: amLODIPine BESYLATE 5 MG TAB PO SCH (08:48)
[2025-01-03] MEDS: lisinopril 10 MG TAB PO SCH (08:48)
[2025-01-03] MEDS: OMEGA-3 (PURIFIED FISH OIL) 1 GM CAP PO SCH (08:49)
[2025-01-03] MEDS: ASPIRIN 81 MG ECTAB PO SCH (08:49)
[2025-01-03] MEDS: MULTIVITAMIN TAB PO SCH (08:50)
[2025-01-03] MEDS: ROSUVASTATIN CALCIUM 20 MG TAB PO SCH (08:50)
[2025-01-03] MEDS: LORATADINE 10 MG TAB PO SCH (08:50)
[2025-01-03] MEDS: MIDODRINE HCL 2.5 MG TAB PO SCH (10:50)
--- NOTE | 2025-01-03 11:39 | Surgery Progress Note ---
Date of Service January 03, 2025 Assessment & Plan (1) S/P vascular surgery: Plan: Pt is POD #1 after R TCAR. Pt hypotensive and on martin for BP support. Will add midodrine and hopefully can wean from neosynephrine. Possible D/C home tomorrow. Pt agreeable. Admission and Anticipated Discharge Date Admission Date: January 02, 2025 Subjective 79 yo f POD #1 after uncomplicated R TCAR, seen in f/u today. Pt admits fatigue/malaise. States she had N/V yesterday, but none today. Taking PO well today. Admits R neck pain in incision. No other new complaints. Review of Systems Review of Systems: All systems reviewed & are unremarkable except as noted in HPI & below Physical Exam Constitutional: WD/WN, vitals as above cooperative; not in distress Neck: R supraclavicular incision C/D/I, mild local edema and tenderness. No hematoma Respiratory: normal respiratory effort, lungs clear to auscultation Auscultation: + diminished lung sounds Cardiovascular: Rate/Rhythm: regular rate and regular rhythm Vessels: femoral pulses present, posterior tibial pulses present, dorsalis pedis pulses present and radial pulses present Extremities: normal capillary refill Gastrointestinal (Abdomen): Inspection/Auscultation: abdomen normal to inspection and normal bowel sounds Percussion/Palpation: abdomen soft; abdomen nontender Musculoskeletal: no cyanosis or clubbing, extremities motor strength 5/5 Skin: no rashes, warm and dry Neurologic: moves all extremities and awake; no focal motor deficits and not confused Psychiatric: A+Ox3, euthymic affect Results & Data Vital Signs (Past 12 Hours) Vital Signs Temp Pulse Resp BP Pulse Ox O2 Del Method O2 Flow Rate 01/03/25 10:22 94/47 L 01/03/25 10:15 69 15 97 01/03/25 10:06 64 21 96 01/03/25 10:00 129/55 L 01/03/25 09:57 67 27 H 96 01/03/25 09:03 71 21 95 01/03/25 09:02 101/42 L 01/03/25 09:00 83 20 95 01/03/25 08:01 116/37 L 01/03/25 08:00 67 23 91 01/03/25 07:06 62 22 95 01/03/25 07:00 36.5 C 01/03/25 06:30 120/52 L 01/03/25 06:30 120/52 L 01/03/25 06:09 65 22 95 01/03/25 06:00 65 22 95 01/03/25 06:00 121/52 L 01/03/25 06:00 121/52 L 01/03/25 06:00 121/52 L 01/03/25 05:03 65 21 97 01/03/25 05:00 125/50 L 01/03/25 05:00 125/50 L 01/03/25 04:51 66 22 97 01/03/25 04:41 123/58 L 01/03/25 04:33 66 20 98 01/03/25 04:30 120/53 L 01/03/25 04:27 66 20 97 01/03/25 04:06 65 20 97 01/03/25 04:00 126/59 L 01/03/25 04:00 126/59 L 01/03/25 03:57 67 20 98 01/03/25 03:30 65 20 96 01/03/25 03:30 124/54 L 01/03/25 03:30 124/54 L 01/03/25 03:30 124/54 L 01/03/25 03:30 124/54 L 01/03/25 03:30 124/54 L 01/03/25 03:09 65 24 96 01/03/25 03:00 90/51 L 01/03/25 03:00 36.3 C L 01/03/25 02:58 95/52 L 01/03/25 02:00 107/48 L 01/03/25 02:00 75 25 H 93 01/03/25 01:06 84 24 94 01/03/25 00:00 116/53 L 01/03/25 00:00 116/53 L 01/03/25 00:00 116/53 L 01/03/25 00:00 85 23 94 01/02/25 23:52 78 01/02/25 23:39 Nasal Cannula 2
[2025-01-04] MEDS ORDERED: Nursing to Pharmacy Communication SCH (07:30)
[2025-01-04 07:51] VITALS: TEMP 98.4
--- NOTE | 2025-01-04 09:14 | Critical Care Progress Note ---
Date of Service January 04, 2025 Assessment & Plan (1) Nausea & vomiting: (2) Hypotension after procedure: (3) Bilateral carotid artery stenosis: (4) Class 1 obesity due to excess calories with serious comorbidity and body mass index (BMI) of 33.0 to 33.9 in adult: Plan Bilateral carotid stenosis s/p right TCAR -Right TCAR on 01/02 -Blood pressure goals per vascular surgery -Neurovascular checks per vascular surgery Hypotension related to possible carotid baroreceptor stimulation v. anesthesia -Titrate to maintain MAP > 65, SBP > 100 < 140 -Phenylephrine off was able to titrate off this am. Cont midodrine. -Hold home BP meds this am. Nausea and vomiting -PRN Zofran for nausea. Refractory overnight. -Phenergan PRN History of hypertension -On Coreg, lisinopril, amlodipine and rosuvastatin at home. -Hold this am due to hypotension this am Admission and Anticipated Discharge Date Admission Date: January 02, 2025 Supervising Physician Co-Signing Physician Notes I saw and evaluated the patient with MARQUISE Day, and agree with findings and plan as documented in the note. Patient seen and examined at bedside. No acute distress, no adverse events overnight Patient was on 0.1 of phenylephrine at time of examination Patient's cuff pressure is better compared to her radial arterial line. I think arterial line is very positional Overall she says she feeling much better. No nausea vomiting No abdominal pain, no flank pain today. No blurry vision, no headache Fair appetite, no nausea or vomiting No shortness of breath Social history: Used to socially smoke, quit around the age of 41. Constitutional: No acute distress HEENT: EOMI, PERRLA, right-sided incision clean Respiratory system: Good air entry bilaterally, no wheeze, no rhonchi, no crackles CVS: S1-S2 positive, 2 out of 6 systolic murmur appreciated best at aorta Abdomen: Soft, nontender, nondistended, positive bowel sounds x4, obese Extremities: +2 pulses bilaterally radialis/ dorsalis pedis, no cyanosis, no edema Neuro: Awake alert oriented x3, cranial nerves II to XII grossly intact, strength 5/5 bilateral upper and lower extremity Psych: Normal mood and affect G/U: Positive Chavez --Prophylaxis VTE: IPC GI: Pantoprazole Lines: Left radial Diet: Cardiorenal Plan: In/out: +202, urine output 1325 Patient has been started on midodrine. She was able to be gradually titrated off phenylephrine. Patient is desperate to go home. Disposition as per vascular surgery Please note the above document was generated using voice recognition software. It may contain grammatical, syntax or spelling errors.Any formal questions or concerns about the content, text or information contained within the body of this dictation should be directly addressed to the provider for clarification. Subjective "I want to go home if I can." "I feel good, I had some right back pain but better after some tylenol." Patient on Phenylephrine gtt this am at 0.1mcg/kg/min. Midodrine given this am and home antihypertensives held. Phenylephrine gtt able to come off with SBP maintaining in the 100-110's range. Review of Systems 2 Review of Systems: All systems reviewed & are unremarkable except as noted in HPI & below Physical Exam 2 Physical Exam: GENERAL APPEARANCE NAD, activity normal for age, well developed/ well nourished, no apparent distress. HEAD/NECK normocephalic atraumatic, no facial trauma, neck is supple. Right lower neck incision site open to air w/o bleeding or hematoma. RESPIRATORY respiratory effort normal, speaks in full sentences, no tripod position, no accessory muscle use. Lungs clear to auscultation without rhonchi, wheezes, rales CARDIAC Regular rate and rhythm, no edema. ABDOMINAL Soft, ND/NT. Normoactive bowel sounds in all quadrants. MUSCLES/EXTREMITIES No abnormal range of motion, no swelling. Left femoral vein access site without bleeding or hematoma. Right upper back pain without signs of bleeding or other injury. SKIN Warm, pink and dry. No rashes, dermatoses, petechiae or lesions. NEUROLOGICAL Speech is clear and appropriate. Normal level of consciousness. Gait and coordination are normal. 5/5 strength in all extremities. PSYCH Normal mood and affect. Judgement/competence is appropriate Results & Data Results & Data Vital Signs (Past 12 Hours) Vital Signs Temp Pulse Resp BP BP Pulse Ox O2 Del Method 01/04/25 08:53 95 Nasal Cannula 01/04/25 08:46 96 Nasal Cannula 01/04/25 08:37 95 Nasal Cannula 01/04/25 08:27 101/57 L 01/04/25 08:18 73 23 94 01/04/25 08:16 112/51 L 01/04/25 08:09 74 18 94 01/04/25 08:06 77 20 93 01/04/25 08:00 101/61 01/04/25 08:00 101/61 01/04/25 08:00 Room Air 01/04/25 08:00 77 01/04/25 07:48 73 22 96 01/04/25 07:36 71 25 H 94 01/04/25 07:24 70 15 94 01/04/25 07:19 110/62 01/04/25 07:00 36.9 C 01/04/25 06:54 69 25 H 94 01/04/25 06:36 69 23 95 01/04/25 06:15 69 24 95 01/04/25 05:15 75 21 91 01/04/25 04:15 70 22 95 01/04/25 03:00 36.6 C 63 24 96 01/04/25 02:11 71 19 94 01/04/25 01:08 36.5 C 67 16 95 01/04/25 00:08 65 25 H 96 01/04/25 00:00 70 01/03/25 23:11 68 19 95 01/03/25 23:00 85/43 L 01/03/25 22:53 72 20 89 L 01/03/25 22:50 93/47 L 01/03/25 22:30 99/42 L 01/03/25 21:42 65 18 90 01/03/25 21:25 132/63 O2 Flow Rate 01/04/25 08:53 2 01/04/25 08:46 3 01/04/25 08:37 4 01/04/25 08:27 01/04/25 08:18 01/04/25 08:16 01/04/25 08:09 01/04/25 08:06 01/04/25 08:00 01/04/25 08:00 01/04/25 08:00 01/04/25 08:00 01/04/25 07:48 01/04/25 07:36 01/04/25 07:24 01/04/25 07:19 01/04/25 07:00 01/04/25 06:54 01/04/25 06:36 01/04/25 06:15 01/04/25 05:15 01/04/25 04:15 01/04/25 03:00 01/04/25 02:11 01/04/25 01:08 01/04/25 00:08 01/04/25 00:00 01/03/25 23:11 01/03/25 23:00 01/03/25 22:53 01/03/25 22:50 01/03/25 22:30 01/03/25 21:42 01/03/25 21:25 Laboratory Results 01/02/25 06:48 Abnormal Lab Results 01/03/25 16:12 POC Glucose 106 H Diagnostic Findings No recent diagnostic tests. Coding Level of Care Code 38832 SUB INP/OBS CARE MIN Diagnoses Bilious vomiting with nausea R11.14 Vomiting type: bilious vomiting Hypotension after procedure I95.81 Bilateral carotid artery stenosis I65.23 Class 1 obesity due to excess calories with serious comorbidity and body mass index (BMI) of 33.0 to 33.9 in adult E66.811; E66.09; Z68.33 (1) Nausea & vomiting Vomiting type: bilious vomiting Qualified Code(s): R11.14 - Bilious vomiting
[2025-01-04 13:27] VITALS: RESP 13; O2SAT 93
--- NOTE | 2025-01-04 13:51 | Surgery Progress Note ---
Date of Service January 04, 2025 Assessment & Plan (1) S/P vascular surgery: Plan: Pt is POD #2after R TCAR. Hypotension improved on midodrine, phenylephrine d/c. Discussed with Dr Nuñez. Pt ok for d/c home on midodrine for 2 weeks. Will see in office in 1-2 weeks for reeval. Admission and Anticipated Discharge Date Admission Date: January 02, 2025 Subjective 79 yo f POD #2 after R TCAR, seen in f/u today. Pt states feeling improved. No new complaints. Hypotension improved on midodrine, phenylephrine d/c Review of Systems Review of Systems: All systems reviewed & are unremarkable except as noted in HPI & below Physical Exam Constitutional: WD/WN, vitals as above cooperative; not in distress Respiratory: normal respiratory effort, lungs clear to auscultation Auscultation: + diminished lung sounds Cardiovascular: Rate/Rhythm: regular rate and regular rhythm Vessels: femoral pulses present, posterior tibial pulses present, dorsalis pedis pulses present and radial pulses present Extremities: normal capillary refill Gastrointestinal (Abdomen): Inspection/Auscultation: abdomen normal to inspection and normal bowel sounds Percussion/Palpation: abdomen soft; abdomen nontender Musculoskeletal: no cyanosis or clubbing, extremities motor strength 5/5 Skin: no rashes, warm and dry Neurologic: moves all extremities and awake; no focal motor deficits and not confused Psychiatric: A+Ox3, euthymic affect Results & Data Vital Signs (Past 12 Hours) Vital Signs Temp Pulse Resp BP Pulse Ox O2 Del Method O2 Flow Rate 01/04/25 13:15 103/60 01/04/25 13:12 61 13 93 01/04/25 13:00 119/65 01/04/25 12:57 62 18 95 01/04/25 12:33 63 26 H 96 01/04/25 12:30 119/64 01/04/25 12:27 62 22 96 01/04/25 12:06 68 20 98 01/04/25 11:33 69 26 H 94 01/04/25 11:30 127/50 L 01/04/25 11:21 69 24 94 01/04/25 11:15 120/71 01/04/25 11:12 60 20 94 01/04/25 11:03 65 20 95 01/04/25 11:00 118/50 L 01/04/25 10:51 62 24 95 01/04/25 10:45 119/67 01/04/25 10:45 63 20 94 01/04/25 10:30 123/69 01/04/25 10:15 122/55 L 01/04/25 10:15 67 22 94 01/04/25 10:00 63 20 95 01/04/25 09:36 61 13 93 01/04/25 09:30 115/70 01/04/25 09:27 64 22 94 01/04/25 09:15 114/65 01/04/25 09:15 60 16 94 01/04/25 09:12 61 19 94 01/04/25 09:00 111/68 01/04/25 09:00 111/68 01/04/25 08:53 95 Nasal Cannula 2 01/04/25 08:46 96 Nasal Cannula 3 01/04/25 08:45 105/53 L 01/04/25 08:45 70 15 95 01/04/25 08:40 105/50 L 01/04/25 08:37 95 Nasal Cannula 4 01/04/25 08:36 65 20 95 01/04/25 08:30 98/55 L 01/04/25 08:27 101/57 L 01/04/25 08:18 73 23 94 01/04/25 08:16 112/51 L 01/04/25 08:09 74 18 94 01/04/25 08:06 77 20 93 01/04/25 08:00 101/61 01/04/25 08:00 101/61 01/04/25 08:00 Room Air 01/04/25 08:00 77 01/04/25 07:48 73 22 96 01/04/25 07:36 71 25 H 94 01/04/25 07:24 70 15 94 01/04/25 07:19 110/62 01/04/25 07:00 36.9 C 01/04/25 06:54 69 25 H 94 01/04/25 06:36 69 23 95 01/04/25 06:15 69 24 95 01/04/25 05:15 75 21 91 01/04/25 04:15 70 22 95 01/04/25 03:00 36.6 C 63 24 96 01/04/25 02:11 71 19 94
[2025-01-04 13:53] VITALS: BP 113/55; PULSE 59
--- NOTE | 2025-01-04 15:35 | Discharge Summary ---
Date of Service January 04, 2025 Admission HPI Per Admitting Provider This is a 79-year-old female who was in her usual state of health when she suddenly developed left facial droop and slurred speech which lasted a few minutes. She denies any weakness of her upper or lower extremities during that time. In the emergency room a few had complete recovery. He has no previous history of ischemic attacks. There is no previous history of strokes. She does have a history of right renal artery stenosis. She also has a history of hypertension. She has no complaints of claudication of either lower extremity. She denies any residual symptoms. 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 She had a CT angiogram which showed an 80 to 85% narrowing of her left internal carotid artery and a 60% narrowing of the right internal carotid artery both with a moderate amount of plaque present. Admission Exam Per Admitting Provider Constitutional: WD/WN, vitals as above Respiratory: normal respiratory effort Cardiovascular: Rate/Rhythm: regular rate and regular rhythm Vessels: femoral pulses present and radial pulses present Extremities: normal capillary refill Gastrointestinal (Abdomen): Inspection/Auscultation: abdomen normal to inspection Percussion/Palpation: abdomen soft Neurologic: CN's II-XI intact bilaterally, normal sensation to monofilament, moves all extremities and awake Psychiatric: A+Ox3, euthymic affect Principal Diagnosis 1. s/p R TCAR 2. Symptomatic R ICA stenosis Discharge Exam Constitutional WD/WN, vitals as above cooperative; not in distress Respiratory normal respiratory effort, lungs clear to auscultation Auscultation: + diminished lung sounds Cardiovascular Rate/Rhythm: regular rate and regular rhythm Vessels: femoral pulses present, posterior tibial pulses present, dorsalis pedis pulses present and radial pulses present Extremities: normal capillary refill Gastrointestinal (Abdomen) Inspection/Auscultation: abdomen normal to inspection and normal bowel sounds Percussion/Palpation: abdomen soft; abdomen nontender Musculoskeletal no cyanosis or clubbing, extremities motor strength 5/5 Skin no rashes, warm and dry Neurologic moves all extremities and awake; no focal motor deficits and not confused Psychiatric A+Ox3, euthymic affect Discharge Data Allergies Allergy/AdvReac Type Severity Reaction Status Date / Time latex Allergy Severe Painful Verified 01/02/25 07:05 blisters Consultations 01/02/25 10:19 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 Hypotension improved on midodrine, phenylephrine d/c. Discussed with Dr Oreilly. Pt ok for d/c home on midodrine for 2 weeks. Will see in office in 1-2 weeks for reeval. Total Time Total Time Spent Total Time Spent (In Minutes): 0 Discharge Plan Discharge Items Patient Disposition: Home - Self-Care Reason For Visit: Symptomatic Right Internal Carotid Artery Stenosis Discharge Diagnosis: 1. s/p R TCAR 2. Symptomatic R ICA stenosis Activity: Per Instructions section Non-emergency contact: Primary Care Provider and Surgeon Call non-emergency contact if: you have any medication questions, your pain is not controlled, your pain is worsening, your pain is concerning for you, you have a fever, your wound has increased redness and your wound has increased drainage Follow-up/Referrals: Jaylan Oreilly MD [Physician] - (Follow up with Dr Oreilly or Delisa Ruiz PA-C, in 2 weeks.) Manuel Herzog DO [Primary Care Provider] - (Follow up with your PCP within 2 weeks) Diet: Heart Healthy Addtl Attending Provider Instructions: SPECIAL CARE INSTRUCTIONS: Diet: * You may return to previous diet. Medications: * Continue to take Aspirin, brilinta, and statin medications as directed. DO NOT STOP THESE MEDICATIONS WITHOUT SPEAKING TO DR ORELILY'S OFFICE Incision Care: * You may shower, but do not rub incision. You may let the warm soapy water run over it. Be sure to dry the incision well after bathing. * Do not shave directly over the incision until it is healed. * DO NOT IMMERSE THE INCISION IN A TUB/POOL/etc. UNTIL HEALED. Restrictions: * Do not drive if you are still taking any narcotic pain medication. * Do not lift anything heavier than a gallon of milk for one week after going home. Possible Complications: * Numbness - It is normal to have some numbness around the incision. Numbness can extend beyond the incision to areas of the neck, ear and face. The numbness is due to bruising of nerves during the surgery and will gradually improve over a period of months. * Hoarseness/Difficulty Speaking and Swallowing - The bruising of nerves in the neck can also cause a hoarse voice, difficulty speaking or swallowing. This may improve over time, HOWEVER, if it continues for more than a few days please contact our office ([phone]). * Excessive Swelling - There will be some swelling immediately after surgery which usually resolves within one week. If you notice that the swelling is getting worse, notify your surgeon ([phone]). * Drainage/Bleeding - If there is any drainage or bleeding, it should be a very small amount (less than a teaspoon per day). If you have excessive bleeding or drainage from the incision, call your surgeon ([phone]) right away. ACTIVATION OF EMERGENCY MEDICAL SYSTEM: Call 911, immediately, if you experience any of the following: Warning Signs and Symptoms of Stroke: * Sudden numbness or weakness of the face, arm or leg, especially on one side of the body * Sudden confusion, trouble speaking or understanding * Sudden trouble seeing in one or both eyes * Sudden trouble walking, dizziness, loss of balance or coordination * Sudden severe headache with no cause Do not delay calling 911 if you experience any warning signs or symptoms of a stroke. Delay in seeking medical attention may affect what treatments can be given to you. Risk Factors for Stroke: You can reduce your chances of stroke by working with your medical provider to adopt a healthy lifestyle. Some specific ways to lower your chance of stroke are: * If you are a smoker, now is the time to stop smoking cigarettes * If you are diabetic, improve the control of your blood sugars * Avoid excessive amounts of alcohol * Control high blood pressure * Lose weight if you are overweight * Be sure to lead an active lifestyle * Eat a healthy diet low in salt, cholesterol and fat You should know about other risk factors for stroke that you are unable to control. These include: * Age 55 years or older * Male gender * Certain racial groups: , or / * Family History of Stroke, Mini stroke or Heart Attack * Sickle Cell Disease You will be receiving a call from the Vascular Surgery Nurse after you are discharged. FOLLOW UP VISIT: It is important for you to keep your follow up appointments with your medical provider. Keep any scheduled doctor appointments. Pending Studies at Discharge: No Stand-Alone Forms: My [facility], Smoking Cessation Medications and DC Order Prescriptions: New midodrine 2.5 mg Tablet 2.5 mg PO TID@0800,1200,1700 Qty: 42 0RF oxycodone-acetaminophen [Percocet] 5-325 mg tablet 1 tab PO BID PRN (Reason: pain) Qty: 10 0RF Continued ipratropium bromide 21 mcg (0.03 %) spray,non-aerosol 2 spray intranasal TID Qty: 30 3RF multivitamin [Daily Multi-Vitamin] Tablet 1 tab PO DAILY carvedilol 6.25 mg tablet 6.25 mg PO BID 90 Days Qty: 180 3RF aspirin 81 mg tablet,delayed release (DR/EC) 81 mg PO DAILY loratadine [Claritin] 10 mg tablet 10 mg PO QAM Brilinta acetaminophen 500 mg Tablet 500 mg PO Q6H PRN (Reason: Pain) omega 5-gpr-[id number]-fish oil 900-1,400 mg Capsule,Delayed Release(Dr/Ec) 1 cap PO DAILY rosuvastatin 40 mg tablet 40 mg PO DAILY Qty: 30 0RF Held amlodipine 10 mg tablet 10 mg PO DAILY Qty: 90 3RF Hold Instructions: Hold if systolic blood pressure less than 130. Call Dr Oreilly's office if questions lisinopril 10 mg tablet 10 mg PO DAILY Qty: 90 3RF Hold Instructions: Hold if systolic blood pressure less than 130. Call Dr Oreilly's office if questions Discharge Orders: Discharge Order (Routine); Ordered 01/04/25 Ordered By: Delisa Muller/Other Patient Handouts: Stroke and Heart Disease Admission Data Admit Date/Time: 01/02/25 07:38 Attending Provider: Jaylan Oreilly Admit Provider: Jaylan Oreilly Primary Care Provider: Manuel Herzog Other Providers: Forrest Fontaine; Liang Dow; Carlos Anderson; Larry Pino; Luis Enrique Gamez; Vin Teran; Allyssa Low; Renzo Gupta Other Interventions: Discharge Summary Assessment (RN) Last Done: 01/04/25 13:51
== END 2025-01-04 14:17 | disposition home or self-care (01) | DRG 35 ==
LOC: ASU 06:48 → 1E 07:38
PROC: EV.TCAR (2025-01-02 08:00)